=== PATIENT | female | born 1975 | race African-American/Black ===

== ENCOUNTER 2017-08-17 12:48 | Emergency (ER) | payer OTHER ==
[~2017-08-17] VITALS: Ht 193 cm; Wt 150.0 kg
[~2017-08-17 12:48] MED LIST: AMLO10 PO; CLON0.1T PO; METO25TA3 PO; TRAM50TA PO
[2017-08-17 12:50] VITALS: BP 243/138; PULSE 85; RESP 16; TEMP 97.6; O2SAT 98
[2017-08-17 13:21] VITALS: O2SAT 99
[2017-08-17] MEDS: NITROGLYCERIN 0.4 MG SL 25 TABS/BTL SL SCH ×3 (13:35→14:03)
[2017-08-17 13:39] LABS: AUTOMATED NEUTROPHIL # 8.7 TH/MM3 (1.8-7.7); BASOPHIL % 0.2 % (0.0-2.0); EOSINOPHIL # 0.1 TH/MM3 (0-0.4); EOSINOPHIL % 0.9 % (0.0-4.0); HEMATOCRIT 40.4 % (35.0-46.0); HEMOGLOBIN 13.5 GM/DL (11.6-15.3); LYMPH % 18.8 % (9.0-44.0); LYMPHOCYTE # 2.3 TH/MM3 (1.0-4.8); MEAN CELL VOLUME 85.7 FL (80.0-100.0); MEAN CORPUSCULAR HEMOGLOBIN 28.6 PG (27.0-34.0); MEAN CORPUSCULAR HGB CONC 33.3 % (32.0-36.0); MEAN PLATELET VOLUME 8.4 FL (7.0-11.0); MONO % 7.8 % (0.0-8.0); MONOCYTE # 0.9 TH/MM3 (0-0.9); NEUT % 72.3 % (16.0-70.0); PLATELET COUNT 236 TH/MM3 (150-450); RED BLOOD COUNT 4.71 MIL/MM3 (4.00-5.30)
--- NOTE | 2017-08-17 13:51 | RADRPT ---
EXAM DATE/TIME: 08/17/2017 13:34 [facility] COMPARISON: CHEST SINGLE AP, June 25, 2016, 12:55. INDICATIONS : Chest pain and vomiting. MEDICAL HISTORY : Hypertension. SURGICAL HISTORY : None. ENCOUNTER: Initial ACUITY: 1 day PAIN SCORE: 10/10 LOCATION: Bilateral chest FINDINGS: A single view of the chest demonstrates the lungs to be symmetrically aerated without evidence of mas s, infiltrate or effusion. The cardiomediastinal contours are unremarkable. Osseous structures are intact. CONCLUSION: 1. No acute abnormality or significant interval change. Amish Olsen MD on August 17, 2017 at 13:49 Board Certified Radiologist. This report was verified electronically.
[2017-08-17 13:54] VITALS: BP 179/104; PULSE 61; RESP 16; O2SAT 99
[2017-08-17 14:03] VITALS: BP 167/98; PULSE 56; RESP 16; O2SAT 99
[2017-08-17 14:06] LABS: BLOOD UREA NITROGEN 7 MG/DL (7-18); CALCIUM 9.1 MG/DL (8.5-10.1); CHLORIDE 103 MEQ/L (98-107); CREATININE 0.83 MG/DL (0.50-1.00); GLOMERULAR FILTRATION RATE 91 ML/MIN (>89); GLUCOSE,RANDOM 98 MG/DL (74-106); SODIUM (NA) 139 MEQ/L (136-145)
[2017-08-17 14:08] VITALS: RESP 18
--- NOTE | 2017-08-17 14:10 | PD ---
HPI Chief Complaint: Chest Pain Time Seen by Provider: 13:24 Travel History International Travel<30 days: No Contact w/Intl Traveler<30days: No Traveled to known affect area: No History of Present Illness HPI 41-year-old female complains of retrosternal chest pain. It started last night at rest. No exertional or pleuritic component. Severity moderate. She reports a history of high blood pressure and smoking. She reports compliance with antihypertensives which for her is clonidine. No fever or cough. No headache nausea or vomiting. She notes high blood pressure. PFSH Past Medical History Blood Disorders: No Cancer: No Cardiovascular Problems: Yes (proximal atrial fibrillation here in November) Chemotherapy: No Diminished Hearing: No Endocrine: No Gastrointestinal Disorders: No Genitourinary: No Heparin Induced Thrombocytopen: No Hypertension: Yes Musculoskeletal: No Neurologic: No Psychiatric: No Reproductive: No Respiratory: No Immunizations Current: No Pancreatitis: Yes Radiation Therapy: No Sickle Cell Disease: No Tetanus Vaccination: Unknown Influenza Vaccination: No ?: Not LMP: 07/25/17 : 1 Para: 1 Past Surgical History AICD: No Arteriovenous Shunt: No Section: Yes (X1) Gynecologic Surgery: Yes ( X1) Insulin Pump: No Joint Replacement: No Pacemaker: No Other Surgery: Yes ( 2000) Social History Alcohol Use: Yes (2 -3 X WEEKLY, PT STATES SHE DRINKS OCC NOW) Tobacco Use: Yes (6 cigs ) Substance Use: Yes (marijuana ) Allergies-Medications (Allergen,Severity, Reaction): Coded Allergies: No Known Allergies (Verified , 06/25/16) Reported Meds & Prescriptions Reported Meds & Active Scripts Active Tramadol (Tramadol HCl) 50 Mg Tab 50 Mg PO Q4H PRN Metoprolol Tartrate 25 Mg Tab 25 Mg PO Q12HR Norvasc (Amlodipine Besylate) 10 Mg Tab 10 Mg PO DAILY Reported Clonidine (Clonidine HCl) 0.1 Mg Tab 0.1 Mg PO Q8HR Review of Systems Except as stated in HPI: all other systems reviewed are Neg Physical Exam Narrative GENERAL: 41-year-old female pleasant well-nourished well-developed Vital Signs Date Time Temp Pulse Resp B/P (MAP) Pulse Ox O2 Delivery O2 Flow Rate FiO2 08/17/17 14:03 56 16 167/98 (121) 99 Room Air 08/17/17 13:54 61 16 179/104 (129) 99 Room Air 08/17/17 13:21 99 Room Air 08/17/17 13:21 99 Room Air 08/17/17 13:18 60 18 99 Room Air 08/17/17 12:50 97.6 85 16 243/138 (173) 98 SKIN: Warm and dry. HEAD: Atraumatic. Normocephalic. EYES: Pupils equal and round. No scleral icterus. No injection or drainage. ENT: No nasal bleeding or discharge. Mucous membranes pink and moist. NECK: Trachea midline. No JVD. CARDIOVASCULAR: Regular rate and rhythm. RESPIRATORY: No accessory muscle use. Clear to auscultation. Breath sounds equal bilaterally. GASTROINTESTINAL: Abdomen soft, non-tender, nondistended. Hepatic and splenic margins not palpable. MUSCULOSKELETAL: Extremities without clubbing, cyanosis, or edema. No obvious deformities. NEUROLOGICAL: Awake and alert. No obvious cranial nerve deficits. Motor grossly within normal limits. Five out of 5 muscle strength in the arms and legs. Normal speech. PSYCHIATRIC: Appropriate mood and affect; insight and judgment normal. Data Data Last Documented VS Vital Signs Date Time Temp Pulse Resp B/P (MAP) Pulse Ox O2 Delivery O2 Flow Rate FiO2 08/17/17 14:03 56 16 167/98 (121) 99 Room Air 08/17/17 12:50 97.6 Orders Orders Electrocardiogram (08/17/17 13:14) Complete Blood Count With Diff (08/17/17 13:14) Basic Metabolic Panel (Bmp) (08/17/17 13:14) Ckmb (Isoenzyme) Profile (08/17/17 13:14) Troponin I (08/17/17 13:14) Chest, Single Ap (08/17/17 13:14) Iv Access Insert/Monitor (08/17/17 13:14) Ecg Monitoring (08/17/17 13:14) Oxygen Administration (08/17/17 13:14) Oximetry (08/17/17 13:14) Lipase (08/17/17 13:28) Hepatic Functional Panel (08/17/17 13:28) Nitroglycerin Sl (Nitrostat Sl) (08/17/17 13:30) Ed Discharge Order (08/17/17 14:33) Labs Laboratory Tests Test 08/17/17 13:22 White Blood Count 12.0 TH/MM3 Red Blood Count 4.71 MIL/MM3 Hemoglobin 13.5 GM/DL Hematocrit 40.4 % Mean Corpuscular Volume 85.7 FL Mean Corpuscular Hemoglobin 28.6 PG Mean Corpuscular Hemoglobin Concent 33.3 % Red Cell Distribution Width 15.0 % Platelet Count 236 TH/MM3 Mean Platelet Volume 8.4 FL Neutrophils (%) (Auto) 72.3 % Lymphocytes (%) (Auto) 18.8 % Monocytes (%) (Auto) 7.8 % Eosinophils (%) (Auto) 0.9 % Basophils (%) (Auto) 0.2 % Neutrophils # (Auto) 8.7 TH/MM3 Lymphocytes # (Auto) 2.3 TH/MM3 Monocytes # (Auto) 0.9 TH/MM3 Eosinophils # (Auto) 0.1 TH/MM3 Basophils # (Auto) 0.0 TH/MM3 CBC Comment DIFF FINAL Differential Comment Blood Urea Nitrogen 7 MG/DL Creatinine 0.83 MG/DL Random Glucose 98 MG/DL Calcium Level 9.1 MG/DL Sodium Level 139 MEQ/L Potassium Level 3.8 MEQ/L Chloride Level 103 MEQ/L Carbon Dioxide Level 28.0 MEQ/L Anion Gap 8 MEQ/L Estimat Glomerular Filtration Rate 91 ML/MIN Total Creatine Kinase 94 U/L Troponin I LESS THAN 0.02 NG/ML MDM Medical Decision Making Medical Screen Exam Complete: Yes Emergency Medical Condition: Yes Medical Record Reviewed: Yes Differential Diagnosis NSTEMI, unstable angina, coronary vasospasm, PE, PTX, aortic dissection, pericarditis, myocarditis, endocarditis, PNA, esophageal disease, aneurysm, musculoskeletal etiologies, anxiety, cocaine/sympathomimetic abuse Narrative Course EKG shows a sinus rhythm with a rate of 59 normal axis intervals Last Impressions Chest X-Ray 08/17/17 1314 Signed Impressions: Service Date/Time: Thursday, August 17, 2017 13:34 - CONCLUSION: 1. No acute abnormality or significant interval change. Amsih Olsen MD CBC & BMP Diagram 08/17/17 13:22 Calcium Level 9.1 Troponin undetectable We will start hydrochlorothiazide Follow up with primary care The patient is resting comfortably and feels better, is alert and in no distress. The patients results and examination findings were discussed. The repeat examination is unremarkable and benign. The history, exam, diagnostic testing, and current condition do not suggest any significant pathology to warrant further testing, continued ED treatment, admission, or surgical evaluation at this point. The vital signs have been stable. The patient does not have uncontrollable pain, intractable vomiting, or other significant symptoms. The patient's condition is stable and appropriate for discharge. The patient will pursue further outpatient evaluation with a primary care physician or other designated or consulting physician as indicated in the discharge instructions. The patient expressed understanding and was agreeable with this plan. Diagnosis Primary Impression: Chest pain Qualified Codes: R07.89 - Other chest pain Additional Impression: Hypertensive urgency Referrals: Primary Care Physician 2 days Med/Other Pt SpecificInfo: Prescription(s) given Scripts Hydrochlorothiazide (Hydrochlorothiazide) 25 Mg Tab 25 MG PO DAILY, #30 TAB 0 Refills Prov: Ralph Juarez MD 08/17/17 Disposition: 01 DISCHARGE HOME Condition: Stable Ralph Juarez MD Aug 17, 2017 14:10
[2017-08-17 14:11] LABS: TROPONIN I LESS THAN 0.02 NG/ML (0.02-0.05)
[2017-08-17] MEDS ORDERED: HYDR25TA5 PO (14:35)
[2017-08-17 23:23] LABS: ALBUMIN 3.6 GM/DL (3.4-5.0); DIRECT BILIRUBIN ADULT 0.1 MG/DL (0.0-0.2)
[2017-08-17 23:25] LABS: INDIRECT BILIRUBIN 0.3 MG/DL (0.0-0.8); TOTAL BILIRUBIN ADULT 0.4 MG/DL (0.2-1.0); TOTAL PROTEIN 7.8 GM/DL (6.4-8.2)
[2017-08-18] MEDS ORDERED: ZOFR4TAB3 SL (14:36)
[2017-08-18] MEDS ORDERED: HYDR-3516 PO (14:36)
--- NOTE | 2017-08-18 15:39 | EKG ---
Date Performed: 08/17/2017 Time Performed: 13:15:19 PTAGE: 41 years EKG: SINUS BRADYCARDIA Since previous tracing, no significant change noted BORDERLINE ECG PREVIOUS TRACING : 06/25/2016 17.34.54 DOCTOR: Alvin Hanna Interpretating Date/Time 08/18/2017 15:38:11
== END 2017-08-17 14:53 | disposition home or self-care (01) ==
LOC: NEPC 12:48
DX: R07.9 Chest pain, unspecified (principal); I16.0 Hypertensive urgency; F12.10 Cannabis abuse, uncomplicated; R00.1 Bradycardia, unspecified; F17.210 Nicotine dependence, cigarettes, uncomplicated; Z87.19 Personal history of other diseases of the digestive system; Z79.899 Other long term (current) drug therapy
CPT/HCPCS: 71045; 80048; 80076; 82550; 83690; 84484; 85025; 93005

== ENCOUNTER 2017-08-18 12:03 | Emergency (ER) | payer OTHER ==
[~2017-08-18] VITALS: Ht 195.6 cm; Wt 145.0 kg
[~2017-08-18 12:03] MED LIST changes: +HYDR25TA5 PO
[2017-08-18 12:06] VITALS: BP 186/121; PULSE 115; RESP 15; TEMP 98.1; O2SAT 97
[2017-08-18] MEDS ORDERED: SODIUM CHLORIDE 0.9% FLUSH 10 ML FLUSH IVF PRN (12:45)
[2017-08-18] MEDS ORDERED: SODIUM CHLOR 0.9% 1000 ML INJ 1,000 ML IV ONE ×2 (13:00→13:45)
[2017-08-18] MEDS ORDERED: ONDANSETRON HCL 4 MG/2 ML VIAL IV PUSH ONE (13:15)
[2017-08-18] MEDS ORDERED: MORPHINE SULFATE 2 MG/ML INJ IV PUSH ONE (13:15)
[2017-08-18 13:17] LABS: AUTOMATED NEUTROPHIL # 8.3 TH/MM3 (1.8-7.7); BASOPHIL # 0.1 TH/MM3 (0-0.2); BASOPHIL % 0.5 % (0.0-2.0); EOSINOPHIL # 0.1 TH/MM3 (0-0.4); HEMATOCRIT 41.4 % (35.0-46.0); HEMOGLOBIN 14.5 GM/DL (11.6-15.3); LYMPH % 21.7 % (9.0-44.0); LYMPHOCYTE # 2.6 TH/MM3 (1.0-4.8); MEAN CELL VOLUME 85.4 FL (80.0-100.0); MEAN CORPUSCULAR HEMOGLOBIN 29.9 PG (27.0-34.0); MEAN CORPUSCULAR HGB CONC 35.1 % (32.0-36.0); MEAN PLATELET VOLUME 8.6 FL (7.0-11.0); MONO % 6.4 % (0.0-8.0); MONOCYTE # 0.8 TH/MM3 (0-0.9); NEUT % 70.4 % (16.0-70.0); PLATELET COUNT 240 TH/MM3 (150-450); RED BLOOD COUNT 4.85 MIL/MM3 (4.00-5.30); RED CELL DISTRIBUTION WIDTH 14.8 % (11.6-17.2); WHITE BLOOD COUNT 11.8 TH/MM3 (4.0-11.0)
--- NOTE | 2017-08-18 13:24 | RADRPT ---
EXAM DATE/TIME: 08/18/2017 12:58 [facility] COMPARISON: CHEST SINGLE AP, August 17, 2017, 13:34. INDICATIONS : Chest Pain MEDICAL HISTORY : Hypertension. Pancreatitis. SURGICAL HISTORY : None. ENCOUNTER: Initial ACUITY: 1 day PAIN SCORE: 8/10 LOCATION: chest FINDINGS: A single view of the chest demonstrates the lungs to be symmetrically aerated without evidence of mas s, infiltrate or effusion. The cardiomediastinal contours are unremarkable. Osseous structures are intact. CONCLUSION: The lungs are clear. Roldan Marte MD on August 18, 2017 at 13:22 Board Certified Radiologist. This report was verified electronically.
[2017-08-18 13:31] LABS: ALBUMIN 3.5 GM/DL (3.4-5.0); ALT (GPT) 21 U/L (10-53); AST (GOT) 16 U/L (15-37); BICARBONATE 27.3 MEQ/L (21.0-32.0); BLOOD UREA NITROGEN 5 MG/DL (7-18); CHLORIDE 104 MEQ/L (98-107); CREATININE 0.72 MG/DL (0.50-1.00); GLOMERULAR FILTRATION RATE 107 ML/MIN (>89); GLUCOSE,RANDOM 93 MG/DL (74-106); MAGNESIUM 1.9 MG/DL (1.5-2.5); SODIUM (NA) 140 MEQ/L (136-145)
[2017-08-18 13:33] LABS: ALKALINE PHOSPHATASE 129 U/L (45-117); TOTAL BILIRUBIN ADULT 0.5 MG/DL (0.2-1.0); TOTAL PROTEIN 7.9 GM/DL (6.4-8.2)
[2017-08-18 13:35] LABS: TROPONIN I LESS THAN 0.02 NG/ML (0.02-0.05)
--- NOTE | 2017-08-18 13:49 | RADRPT ---
EXAM DATE/TIME: 08/18/2017 13:11 [facility] COMPARISON: No previous studies available for comparison. INDICATIONS : Right upper quadrant pain. MEDICAL HISTORY : Hypertension. Pancreatitis. Proximal atrial fibrillation. Susbstance use. SURGICAL HISTORY : section. Right lower leg with skin grafts. ENCOUNTER: Initial ACUITY: 3 days PAIN SCORE: 8/10 LOCATION: Right upper quadrant MEASUREMENTS: LIVER: 17.5 cm length COMMON DUCT: 3 mm RIGHT KIDNEY: 11.6 x 5.7 x 4.5 cm FINDINGS: LIVER: Increased echotexture without focal lesion or ductal dilatation. COMMON DUCT: No intraluminal mass or stone visualized. GALLBLADDER: Contains no stones, demonstrates no wall thickening or pericholecystic fluid. PANCREAS: The visualized portions are within normal limits. RIGHT KIDNEY: No evidence of hydronephrosis, stone, or mass. CONCLUSION: Normal examination except for a mildly fatty liver. Micah Walker MD on August 18, 2017 at 13:47 Board Certified Radiologist. This report was verified electronically.
--- NOTE | 2017-08-18 13:53 | PD ---
HPI Chief Complaint: Chest Pain Time Seen by Provider: 12:40 Travel History International Travel<30 days: No Contact w/Intl Traveler<30days: No Traveled to known affect area: No History of Present Illness HPI 41-year-old female that presents to the ED for evaluation of chest pain. Patient was seen here yesterday for this. Diagnosed with chest pain and hypertension. Given HCTZ. Pain continues 02/07. Medical records show elevated lipase and no note of this in previous providers note. per patient she has a history of alcohol abuse and pancreatitis in the past. pain not better. nauseous but no vomiting. No urinary or BM issues. Chest pain is more on the epigastric area. No urinary or BM issues. No allergies to meds. Still has gallbladder. No SOB. No other medical issues. PFSH Past Medical History Blood Disorders: No Cancer: No Cardiovascular Problems: Yes (proximal atrial fibrillation here in November) Chemotherapy: No Diminished Hearing: No Endocrine: No Gastrointestinal Disorders: No Genitourinary: No Heparin Induced Thrombocytopen: No Hypertension: Yes Musculoskeletal: No Neurologic: No Psychiatric: No Reproductive: No Respiratory: No Immunizations Current: No Pancreatitis: Yes Radiation Therapy: No Sickle Cell Disease: No ?: Not : 1 Para: 1 Past Surgical History AICD: No Arteriovenous Shunt: No Section: Yes (X1) Gynecologic Surgery: Yes ( ) Insulin Pump: No Joint Replacement: No Pacemaker: No Other Surgery: Yes ( 2000) Social History Alcohol Use: Yes (2 -3 X WEEKLY, PT STATES SHE DRINKS OCC NOW) Tobacco Use: Yes (6 cigs ) Substance Use: Yes (marijuana ) Allergies-Medications (Allergen,Severity, Reaction): Coded Allergies: No Known Allergies (Verified , 06/25/16) Reported Meds & Prescriptions Reported Meds & Active Scripts Active Hydrochlorothiazide 25 Mg Tab 25 Mg PO DAILY Tramadol (Tramadol HCl) 50 Mg Tab 50 Mg PO Q4H PRN Metoprolol Tartrate 25 Mg Tab 25 Mg PO Q12HR Norvasc (Amlodipine Besylate) 10 Mg Tab 10 Mg PO DAILY Reported Clonidine (Clonidine HCl) 0.1 Mg Tab 0.1 Mg PO Q8HR Review of Systems Except as stated in HPI: all other systems reviewed are Neg Physical Exam Narrative GENERAL: SKIN: Warm and dry. HEAD: Atraumatic. Normocephalic. EYES: Pupils equal and round. No scleral icterus. No injection or drainage. ENT: No nasal bleeding or discharge. Mucous membranes pink and moist. NECK: Trachea midline. No JVD. CARDIOVASCULAR: Regular rate and rhythm. RESPIRATORY: No accessory muscle use. Clear to auscultation. Breath sounds equal bilaterally. GASTROINTESTINAL: Abdomen soft, tender on the epigastric area, nondistended. Hepatic and splenic margins not palpable. MUSCULOSKELETAL: Extremities without clubbing, cyanosis, or edema. No obvious deformities. NEUROLOGICAL: Awake and alert. No obvious cranial nerve deficits. Motor grossly within normal limits. Five out of 5 muscle strength in the arms and legs. Normal speech. PSYCHIATRIC: Appropriate mood and affect; insight and judgment normal. Data Data Last Documented VS Vital Signs Date Time Temp Pulse Resp B/P (MAP) Pulse Ox O2 Delivery O2 Flow Rate FiO2 08/18/17 14:01 50 18 161/100 (120) 97 Nasal Cannula 2.00 08/18/17 12:06 98.1 Orders Orders Electrocardiogram (08/18/17 ) Ckmb (Isoenzyme) Profile (08/18/17 12:42) Complete Blood Count With Diff (08/18/17 12:42) Magnesium (Mg) (08/18/17 12:42) Troponin I (08/18/17 12:42) Lipase (08/18/17 12:42) Chest, Single Ap (08/18/17 12:42) Ecg Monitoring (08/18/17 12:42) Bilateral Bp Monitoring (08/18/17 12:42) Iv Access Insert/Monitor (08/18/17 12:42) Sodium Chloride 0.9% Flush (Ns Flush) (08/18/17 12:45) Us Abdomen Gallbladder (08/18/17 ) Sodium Chlor 0.9% 1000 Ml Inj (Ns 1000 M (08/18/17 13:00) Comprehensive Metabolic Panel (08/18/17 12:48) Morphine Inj (Morphine Inj) (08/18/17 13:15) Ondansetron Inj (Zofran Inj) (08/18/17 13:15) Sodium Chlor 0.9% 1000 Ml Inj (Ns 1000 M (08/18/17 13:45) Ed Discharge Order (08/18/17 14:32) Labs Laboratory Tests Test 08/18/17 12:53 White Blood Count 11.8 TH/MM3 Red Blood Count 4.85 MIL/MM3 Hemoglobin 14.5 GM/DL Hematocrit 41.4 % Mean Corpuscular Volume 85.4 FL Mean Corpuscular Hemoglobin 29.9 PG Mean Corpuscular Hemoglobin Concent 35.1 % Red Cell Distribution Width 14.8 % Platelet Count 240 TH/MM3 Mean Platelet Volume 8.6 FL Neutrophils (%) (Auto) 70.4 % Lymphocytes (%) (Auto) 21.7 % Monocytes (%) (Auto) 6.4 % Eosinophils (%) (Auto) 1.0 % Basophils (%) (Auto) 0.5 % Neutrophils # (Auto) 8.3 TH/MM3 Lymphocytes # (Auto) 2.6 TH/MM3 Monocytes # (Auto) 0.8 TH/MM3 Eosinophils # (Auto) 0.1 TH/MM3 Basophils # (Auto) 0.1 TH/MM3 CBC Comment DIFF FINAL Differential Comment Blood Urea Nitrogen 5 MG/DL Creatinine 0.72 MG/DL Random Glucose 93 MG/DL Total Protein 7.9 GM/DL Albumin 3.5 GM/DL Calcium Level 9.0 MG/DL Alkaline Phosphatase 129 U/L Aspartate Amino Transf (AST/SGOT) 16 U/L Alanine Aminotransferase (ALT/SGPT) 21 U/L Total Bilirubin 0.5 MG/DL Sodium Level 140 MEQ/L Potassium Level 3.6 MEQ/L Chloride Level 104 MEQ/L Carbon Dioxide Level 27.3 MEQ/L Anion Gap 9 MEQ/L Estimat Glomerular Filtration Rate 107 ML/MIN Magnesium Level 1.9 MG/DL Total Creatine Kinase 80 U/L Troponin I LESS THAN 0.02 NG/ML Lipase 1077 U/L MDM Medical Decision Making Medical Screen Exam Complete: Yes Emergency Medical Condition: Yes Medical Record Reviewed: Yes Interpretation(s) CBC & BMP Diagram 08/18/17 12:53 Total Protein 7.9, Albumin 3.5, Calcium Level 9.0, Alkaline Phosphatase 129 H, Aspartate Amino Transf (AST/SGOT) 16, Alanine Aminotransferase (ALT/SGPT) 21, Total Bilirubin 0.5 Last Impressions Chest X-Ray 08/18/17 1242 Signed Impressions: Service Date/Time: Friday, August 18, 2017 12:58 - CONCLUSION: The lungs are clear. Roldan Marte MD Gall Bladder Ultrasound 08/18/17 0000 Signed Impressions: Service Date/Time: Friday, August 18, 2017 13:11 - CONCLUSION: Normal examination except for a mildly fatty liver. Micah Walker MD EKG shows sinus rhythm with no sign of acute ischemia or arrythmia. Read by me and attending. Troponin and CK-MB negative. Lipase in the 1000 Differential Diagnosis Pancreatitis versus atypical chest pain versus gallbladder disease Narrative Course 41-year-old female that presents to the ED for evaluation of epigastric abdominal pain. Patient was properly examined and was found to have signs and symptoms consistent appears to be acute pancreatitis. I reviewed the patient's medical records and she had an highly elevated lipase yesterday. Unclear if this was mentioned to the patient is is no note about this. Patient is very tender on the right upper quadrant we'll do ultrasound to rule out any sign of gallbladder disease. Ultrasound was negative. Labs were essentially reassuring. Lipase is improved. She was given IV fluids here and pain medication with good results. At this time I think that the patient can go home with pain medication and antiemetics and liquid diet. She agrees with this plan. Follow-up with PCP. See ED worsening symptoms. Diagnosis Primary Impression: Acute pancreatitis Qualified Codes: K85.20 - Alcohol induced acute pancreatitis without necrosis or infection Patient Instructions: General Instructions, Narcotic given in the ED Additional Instructions: Take medications as prescribed. Follow-up with PCP. See ED for any worsening symptoms. Do not drink or drive while taking pain medication. Apply ice or heat as needed for pain Med/Other Pt SpecificInfo: Prescription(s) given Disposition: 01 DISCHARGE HOME Condition: Stable Bijan Blankenship Aug 18, 2017 13:52
[2017-08-18 14:01] VITALS: BP 161/100; PULSE 50; RESP 18; O2SAT 97
[2017-08-18] MEDS ORDERED: HYDR-3516 PO (14:36)
[2017-08-18] MEDS ORDERED: ZOFR4TAB3 SL (14:36)
--- NOTE | 2017-08-19 23:12 | EKG ---
Date Performed: 08/18/2017 Time Performed: 12:20:33 PTAGE: 41 years EKG: Sinus rhythm WITH SINUS ARRHYTHMIA POSSIBLE LEFT ATRIAL ENLARGEMENT BORDERLINE ECG PREVIOUS TRACING : 08/17/2017 13.15 DOCTOR: Tia Floyd Interpretating Date/Time 08/19/2017 23:01:28
== END 2017-08-18 14:47 | disposition home or self-care (01) ==
LOC: NEPE 12:03
DX: K85.20 Alcohol induced acute pancreatitis without necrosis or infection (principal); I10 Essential (primary) hypertension; F17.210 Nicotine dependence, cigarettes, uncomplicated; F10.10 Alcohol abuse, uncomplicated
CPT/HCPCS: 71045; 76705; 80053; 82550; 83690; 83735; 84484; 85025; 93005; 96361; 96374; 96375; 99285; J2270; J2405; J7030

== ENCOUNTER 2018-01-12 05:01 | Inpatient (IN) ==
[2018-01-12] MEDS ORDERED: Famotidine PF Inj 20 MG/2 ML Vial IV.PUSH ONE (05:59)
[2018-01-12] MEDS ORDERED: Morphine Inj 4 MG/ML Vial IV.PUSH ONE (06:00)
[2018-01-12] MEDS ORDERED: Sod Chloride 0.9% Inj 1,000 ML IV.SIG ONE (06:01)
[2018-01-12] MEDS ORDERED: Labetalol HCl Inj 100 MG/20 ML Vial IV.PUSH ONE ×2 (06:09→06:10)
--- NOTE | 2018-01-12 06:31 | ED ---
HPI General Chief Complaint: Chest Pain Stated Complaint: Chest pain Time Seen by Provider: 01/12/18 05:57 Source: patient and EMS Limitations: no limitations History of Present Illness HPI narrative: Patient awoke this evening vomiting abdominal pain substernal pain burning radiating up to the throat she has a history of pancreatitis she said is from alcohol she has been drinking excessively she says denies gallstone history she has had nausea vomiting burning for over 12 hours comes to the ER screaming in pain writhing in pain nothing is alleviating it nothing seems to make it worse but she thinks it could be related to the alcohol she has been drinking somewhat heavy she says in the last day Complete Quality Measures for STEMI Alert Patients Related Data Home Medications Medication Instructions Recorded Confirmed clonidine HCl 0.1 mg PO TID 01/12/18 01/12/18 Allergies Allergy/AdvReac Type Severity Reaction Status Date / Time No Known Allergies Allergy Uncoded 06/25/16 12:56 Review of Systems Except as stated in HPI: all other systems reviewed are negative [facility] Medical History Medical History HTN (hypertension) (Acute) Surgical History Surgical History History of orthopedic surgery (Acute) Social History Social History Substance History: Active Abuse Second Hand Smoke Exposure: No Smoking Status: Current every day smoker Tobacco Type: Cigarettes How Often Do You Have a Drink Containing Alcohol: 2 to 3 times a week Recent Travel in [facility] within the Last 8 Weeks: No Recent Out of Country Travel within the Last 8 Weeks: No Substance Abuse Detail Marijuana: Substance Use Status: Active Route Used Substance Abuse: Inhalation Reason for Use: Get High Immunization History Tetanus Immunization: Unsure Hx Influenza Vaccine This Season: No Exam Narrative Exam Narrative: GENERAL: Patient appears to be in distress she is holding her abdomen writhing moaning screaming in pain [-] SKIN: Focused skin assessment warm/dry. HEAD: Atraumatic. Normocephalic. EYES: Pupils equal and round. No scleral icterus. No injection or drainage. ENT: No nasal bleeding or discharge. Mucous membranes pink and moist. NECK: Trachea midline. No JVD. CARDIOVASCULAR: Regular rate and rhythm. No murmur appreciated. RESPIRATORY: No accessory muscle use. Clear to auscultation. Breath sounds equal bilaterally. GASTROINTESTINAL: Patient is obese has epigastric pain for umbilical pain soft nondistended but obese MUSCULOSKELETAL: No obvious deformities. No clubbing. No cyanosis. No edema. NEUROLOGICAL: Awake and alert. No obvious cranial nerve deficits. Motor grossly within normal limits. Normal speech. PSYCHIATRIC: Appropriate mood and affect; insight and judgment normal. Course Initial Documented Vital Signs Temperature 97.8 F 01/12/18 05:03 Pulse Rate 82 01/12/18 05:03 Respiratory Rate 28 H 01/12/18 05:03 Blood Pressure 271/153 H 01/12/18 05:03 Pulse Oximetry 100 01/12/18 05:03 Last Documented Vital Signs Temperature 97.8 F 01/12/18 05:03 Pulse Rate 77 01/12/18 08:46 Respiratory Rate 18 01/12/18 08:46 Blood Pressure 233/125 H 01/12/18 08:46 Pulse Oximetry 97 01/12/18 08:46 Critical Care Time Critical Care Time: Yes Total Critical Care Time: 31 Attestation: Total critical care time 31 minutes. This includes examining and stabilizing the patient, gathering a history from a source other than the patient (i.e., chart review, sign out from overnight provider), reviewing laboratory tests, ordering and interpreting radiology tests, discussing the patient's care with other providers (critical care), and titration of nicardipine drip Sign Out Sign Out Data: Patient Sign Out occurred on 01/12/18 at 07:28. Patient's care was discussed, and care was transferred from Kal Antony to Geri Fisher DO. Sign Out Comment: pt has CT pending and abdominal pain Last updated by Kal Antony at 01/12/18 07:27 Post-Handoff Eval: Patient brought to CT scan for abdomen/ pelvis study, noted to be acutely altered stating that it is 2006 and she is in [place]. CT head performed showed no ICH; patient returned to baseline mental status when she returned to the ED. BP continues to be profoundly elevated (230s/120s) despite multiple doses of labetalol and clonidine, so I started her on a nicardipine drip. The remainder of her workup shows no obvious abnormalities and no source of her abdominal pain. Case discussed with Dr. Mansfield of [facility]; patient requires inpatient admission for vasoactive medications, cardiac monitoring, and re-evaluation at frequent intervals. I explained the results of all labs and imaging as well as plan of care with the patient; she understands and agrees. Medical Decision Making MDM Narrative Medical decision making narrative: Patient is given Pepcid Reglan normal saline pain meds hydration and will have a CAT scan Differential Diagnosis Differential Diagnosis: Differential diagnosis includes pancreatitis gallbladder disease gastritis viral gastroenteritis possible cardiac possible pulmonary other Lab Data Result diagrams: 01/12/18 06:00 01/12/18 06:00 Lab Results 01/12/18 01/12/18 Range/Units 06:00 06:00 WBC 15.7 H (4.0-11.0) th/mm3 RBC 5.59 H (4.00-5.30) mil/mm3 Hgb 15.6 H (11.6-15.3) gm/dL Hct 47.0 H (35.0-46.0) % MCV 84.0 (80.0-100.0) fL MCH 28.0 (27.0-34.0) pg MCHC 33.3 (32.0-36.0) % RDW 15.4 (11.6-17.2) % Plt Count 316 (150-450) th/mm3 MPV 9.4 (7.0-11.0) fL Neut % (Auto) 82.6 H (16.0-70.0) % Lymph % (Auto) 11.1 (9.0-44.0) % [place] % (Auto) 4.9 (0.0-8.0) % Eos % (Auto) 0.1 (0.0-4.0) % Baso % (Auto) 1.3 (0.0-2.0) % Neut # (Auto) 13.0 H (1.8-7.7) th/mm3 Lymph # (Auto) 1.7 (1.0-4.8) th/mm3 [place] # (Auto) 0.8 (0.0-0.9) th/mm3 Eos # (Auto) 0.0 (0.0-0.4) th/mm3 Baso # (Auto) 0.2 (0.0-0.2) th/mm3 WBC Differential . Differential Comment Auto diff final Sodium 140 (136-145) meq/L Potassium 3.2 L (3.5-5.1) meq/L Chloride 103 (98-107) meq/L Carbon Dioxide 23.0 (21.0-32.0) meq/L Anion Gap 14 (5-15) meq/L BUN 11 (7-18) mg/dL Creatinine 1.04 H (0.50-1.00) mg/dL Estimated GFR 70 L (>89) mL/min Random Glucose 125 H (74-106) mg/dL Calcium 10.1 (8.5-10.1) mg/dL Total Bilirubin 0.6 (0.2-1.0) mg/dL AST 26 (15-37) U/L ALT 35 (10-53) U/L Alkaline Phosphatase 179 H (45-117) U/L Total Protein 9.2 H (6.4-8.2) g/dL Albumin 4.0 (3.4-5.0) g/dL Lipase 65 L (73-393) U/L Imaging Data Radiologist's impression: Abdomen/Pelvis CT 01/12/18 06:47 CONCLUSION: 1. No abnormalities identified to account for the patient's epigastric pain. Pancreas appears normal. 2. Severe asymmetric degenerative changes of the right hip. Head CT 01/12/18 07:58 CONCLUSION: 1. Negative CT Head non contrast. Discharge Plan Discharge Disposition Patient Disposition: 30 Still Patient Discharge Condition Condition: Serious Discharge Details Diagnosis: Encephalopathy acute, Hypertensive emergency Physicians Team ED Provider: Geri Fisher Primary Care Provider: Primary Care CassiAlexia Rxs /Orders / Referrals /Forms Prescriptions: No Action clonidine HCl 0.1 mg Tablet 0.1 mg PO TID RF: 0 Discharge Instructions Patient Printed Instructions: Chest Pain (ED) Discharge Interventions Interventions: Vital Signs Last Done: 01/12/18 08:46 Status ED Status: With Doctor
[2018-01-12 06:34] LABS: Baso # (Auto) 0.2 th/mm3 (0.0-0.2); Baso % (Auto) 1.3 % (0.0-2.0); Eos % (Auto) 0.1 % (0.0-4.0); Hemoglobin 15.6 gm/dL (11.6-15.3); Lymph # (Auto) 1.7 th/mm3 (1.0-4.8); Lymph % (Auto) 11.1 % (9.0-44.0); Mean Corpuscular HGB Conc 33.3 % (32.0-36.0); Mean Platelet Volume 9.4 fL (7.0-11.0); Mono # (Auto) 0.8 th/mm3 (0.0-0.9); Mono % (Auto) 4.9 % (0.0-8.0); Neut % (Auto) 82.6 % (16.0-70.0); Platelet Count 316 th/mm3 (150-450); Red Blood Count 5.59 mil/mm3 (4.00-5.30); Red Cell Distribution Width 15.4 % (11.6-17.2); White Blood Count 15.7 th/mm3 (4.0-11.0)
[2018-01-12 06:41] LABS: Alanine Aminotransferase 35 U/L (10-53); Anion Gap 14 meq/L (5-15); Aspartate Aminotransferase 26 U/L (15-37); Blood Urea Nitrogen 11 mg/dL (7-18); Calcium 10.1 mg/dL (8.5-10.1); Chloride 103 meq/L (98-107); Glomerular Filtration Rate 70 mL/min (>89); Glucose,Random 125 mg/dL (74-106); Lipase 65 U/L (73-393); Potassium 3.2 meq/L (3.5-5.1); Sodium 140 meq/L (136-145)
[2018-01-12 06:44] LABS: Alkaline Phosphatase 179 U/L (45-117); Total Protein 9.2 g/dL (6.4-8.2)
--- NOTE | 2018-01-12 08:29 | CT ---
EXAM DATE: 01/12/2018 8:23 AM EDT AGE/SEX: 42 years / Female INDICATIONS: Epigastric abdomen pain today. CLINICAL DATA: This is the patient's initial encounter. Patient reports that signs and symptoms have been present for 1 day and indicates a pain score of 10/10. MEDICAL/SURGICAL HISTORY: Hypertension. Pancreatitis. None. ORAL CONTRAST: No oral contrast ingested. RADIATION DOSE: 16.54 CTDI (mGy) ; Patient body habitus COMPARISON: No prior exams available for comparison. TECHNIQUE: Multiple contiguous axial images were obtained through the abdomen and pelvis following b olus infusion of 95 ml Omnipaque 350 (iohexol) nonionic water-soluble contrast as a single exam dos e. No oral contrast ingested. Using automated exposure control and adjustment of the mA and/or kV ac cording to patient size, radiation dose was kept as low as reasonably achievable to obtain optimal di agnostic quality images. DICOM format image data is available electronically for review and comparis on. FINDINGS: Lower Lungs: The visualized lower lungs are clear. Liver: The liver has a homogeneous density without space-occupying lesion. There is no dilation of th e biliary tree. Gallbladder is normal. Spleen: Homogeneous density without enlargement. Pancreas: Unremarkable without mass or calcification. Kidneys: Normal in size and shape. No evidence of mass or hydronephrosis. Adrenal Glands: Unremarkable. Aorta: The aorta and proximal iliac vessels are grossly unremarkable without aneurysmal dilation. Bowel/Mesentery: Diverticulosis of the sigmoid colon. The remainder of the large bowel and small bow el are unremarkable without evidence of wall thickening or inflammatory change. Abdominal Wall: Intact. Retroperitoneum: No evidence of adenopathy in the retrocrural, para-aortic, or deep pelvic regions. Bladder: Contours are smooth. Reproductive Organs: No abnormal masses or calcifications seen. Inguinal: The inguinal region is unremarkable without evidence of adenopathy. Bony Structures: There is severe right hip degenerative change with axial joint line narrowing, ring osteophyte formation around the femoral head and large areas of subchondral cyst formation identifie d throughout the right acetabulum. Mild degenerative changes are present within the left hip. CONCLUSION: 1. No abnormalities identified to account for the patient's epigastric pain. Pancreas appears normal . 2. Severe asymmetric degenerative changes of the right hip. Electronically signed by: Zohra Carlin MD 01/12/2018 8:28 AM EDT
--- NOTE | 2018-01-12 08:35 | CT ---
EXAM DATE: 01/12/2018 8:29 AM EDT AGE/SEX: 42 years / Female INDICATIONS: Altered mental status. Became unresponsive following CT abdomen/pelvis with IV contrast . CLINICAL DATA: This is the patient's initial encounter. Patient reports that signs and symptoms have been present for 1 day and indicates a pain score of Nonresponsive. MEDICAL/SURGICAL HISTORY: Pancreatitis. Hypertension. None. RADIATION DOSE: 56.35 CTDI (mGy) COMPARISON: [facility], CT BRAIN W/O CONTRAST, 06/25/2016. [facility], CT BRAIN W/O CONTRAST, 02/18/2016. . TECHNIQUE: CT of the head without contrast. Using automated exposure control and adjustment of the mA and/or kV according to patient size, radiation dose was kept as low as reasonably achievable to ob tain optimal diagnostic quality images. DICOM format image data is available electronically for revi ew and comparison. FINDINGS: Cerebrum: The ventricles are normal for age. No evidence of midline shift, mass lesion, hemorrhage or acute infarction. No extraaxial fluid collections are seen. Posterior Fossa: The cerebellum and brainstem are intact. The 4th ventricle is midline. The cerebe llopontine angle is unremarkable. Extracranial: The visualized portion of the orbits is intact. Skull: The calvaria is intact. No evidence of skull fracture. CONCLUSION: 1. Negative CT Head non contrast. Electronically signed by: Zohra Carlin MD 01/12/2018 8:33 AM EDT
[2018-01-12] MEDS ORDERED: niCARdipine Inj 25 MG in Sodium Chlor 0.9% Inj 240 ML IV.CONT PRN (08:49)
[2018-01-12] MEDS ORDERED: Bisacodyl 10 MG Supp RECTAL PRN (09:23)
[2018-01-12] MEDS: Pantoprazole Inj 40 MG Vial IV.PUSH SCH (10:05)
[2018-01-12] MEDS: KCL 20 mEq/D5W/NaCl 0.45% Inj 1,000 ML IV.CONT SCH ×2 (10:06→20:36)
--- NOTE | 2018-01-12 10:34 | P.HPCC ---
History of Present Illness Primary Care Physician: No Primary Care Physician Chief Complaint: Chest pain History of Present Illness: 42-year-old female with a medical history significant for hypertension, pancreatitis who presented to the ER with complains of left-sided chest pain/ epigastric pain which started about 12 hours prior to presentation last evening. She was noted to have extremely high blood pressures under 240 systolic range in the ER. She underwent a CT abdomen pelvis which was unremarkable. While in CAT scan she developed altered mental status and disorientation which was transient. Head CT done following that episode was unremarkable as well with no evidence of bleed. She continued to have systolic blood pressure greater than 200. Only medication she takes at home is clonidine. 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 She does admit to drinking 1-2 alcoholic drinks(kallie) daily. ER physician ordered a nicardipine drip for blood pressure control. patient was accepted for admission by critical care medicine service. When I evaluated the patient in the ER she was laying in the ER stretcher and did not appear to be in any acute distress. In view of chest pain and uncontrolled hypertension presentation I ordered a CTA chest abdomen pelvis to evaluate for any aortic dissection. Her initial cardiac enzymes were negative. She denies any fevers chills productive cough hematemesis melena or rectal bleeding. Denies any palpitations. Denies any diarrhea. Inpatient Certification: I certify that the inpatient services were ordered in accordance with Medicare regulations governing the order. This includes certification that hospital inpatient services are reasonable and necessary and in the case of services not specified as inpatient-only under 42 CFR 419.22(n), that they are appropriately provided as inpatient services in accordance to with the 2-midnight benchmark under 43 CFR 412.3(e) Estimated Total Length of Stay (Days): 4 Plans for Post Hospital Care: Not yet determined Review of Systems All other systems reviewed negative except as stated in HPI PMFSH - History History Provided By: Patient - Medical History Medical History: Medical History (Last Updated 01/12/18 @ 10:21 by Ezio Mansfield MD) HTN (hypertension) Pancreatitis - Surgical History Surgical History: Surgical History (Last Reviewed 01/12/18 @ 06:30 by Kal Antony) History of orthopedic surgery - Tobacco History Second Hand Smoke Exposure: No Tobacco Use In Past 30 Days: Yes Smoking Status: Current every day smoker Tobacco Type: Cigarettes - Alcohol History How Often Do You Have a Drink Containing Alcohol: 4 or more times a week - Substance Use History Substance History: Active Abuse - Substance Use Type Marijuana Status: Active Route Used: Inhalation Reason for Use: Get High - Travel History Recent Travel in the [place] Within the Last 8 Weeks: No Recent Travel Out of the Country Within the Last 8 Weeks: No - Immunization History Tetanus Immunization: Unsure Hx Influenza Vaccine This Season: No Medications and Allergies Active Medications: Active Medications Al Hydroxide/Mg Hydroxide (Milk Of Magnesia Liq) 30 ml PO Q12H PRN PRN Reason: Mild Constipation Albuterol (Duoneb Neb (Prn)) 1 ampul NEB Q2HR NEB PRN PRN Reason: WHEEZING Amlodipine Besylate (Norvasc) 10 mg PO DAILY KAREN Bisacodyl (Dulcolax Supp) 10 mg RECTAL DAILY PRN PRN Reason: SEVERE CONSITIPATION Chlorhexidine Gluconate (Chlorhexidine 2% Cloth) 3 pack TOPICAL DAILY@0400 KAREN Stop: 01/18/18 03:59 Chlorhexidine Gluconate (Chlorhexidine 2% Cloth) 3 pack TOPICAL DAILY@0400 PRN PRN Reason: Extra cloth needed Stop: 01/18/18 03:59 Enoxaparin Sodium (Lovenox Inj) 40 mg SQ Q24H [facility] Hydralazine HCl (Apresoline Inj) 20 mg IV.PUSH Q4H PRN PRN Reason: SBP>180, DBP>110 Nicardipine HCl 25 mg/ Sodium (Chloride) 250 mls @ 50 mls/hr IV.CONT TITRATE PRN; Protocol PRN Reason: Per Protocol Potassium Chloride/Dextrose/Sod Cl (D5w/1/2ns + Kcl 20 Meq Inj) 1,000 mls @ 100 mls/hr IV.CONT .Q10H [facility] Last Admin: 01/12/18 10:06 Dose: 100 mls/hr Lactulose (Lactulose Liq) 30 ml PO DAILY PRN PRN Reason: SEVERE CONSITIPATION Metoclopramide HCl (Reglan Inj) 10 mg IV.PUSH Q6H PRN; Protocol PRN Reason: NAUSEA OR VOMITING Ondansetron HCl (Zofran Inj) 4 mg IV.PUSH Q6H PRN PRN Reason: NAUSEA OR VOMITING Oxycodone/Acetaminophen (Percocet 5/325 Mg) 1 tab PO Q4H PRN PRN Reason: SEE DOSE INSTRUCTIONS Pantoprazole Sodium (Protonix Inj) 40 mg IV.PUSH DAILY KAREN Last Admin: 01/12/18 10:05 Dose: 40 mg Senna/Docusate Sodium (Tahmina-Colace) 1 tab PO BID KAREN Sennosides (Senokot) 17.2 mg PO Q12H PRN PRN Reason: Moderate Constipation Sodium Chloride (Ns Flush) 2 ml IV.FLUSH BID KAREN Sodium Chloride (Ns Flush) 2 ml IV.FLUSH PRN PRN PRN Reason: FLUSH AFTER USING IV ACCESS Allergies Allergy/AdvReac Type Severity Reaction Status Date / Time No Known Allergies Allergy Verified 01/12/18 10:19 Home Medications Medication Instructions Recorded Confirmed Type clonidine HCl 0.1 mg PO TID 01/12/18 01/12/18 History Results - Labs CBC & Chem 7: 01/12/18 06:00 01/12/18 06:00 Labs: Short CBC 01/12/18 Range/Units 06:00 WBC 15.7 H (4.0-11.0) th/mm3 Hgb 15.6 H (11.6-15.3) gm/dL Hct 47.0 H (35.0-46.0) % Plt Count 316 (150-450) th/mm3 BMP 01/12/18 06:00 Sodium 140 Potassium 3.2 L Chloride 103 Carbon Dioxide 23.0 BUN 11 Creatinine 1.04 H Calcium 10.1 Liver Function 01/12/18 Range/Units 06:00 Total Bilirubin 0.6 (0.2-1.0) mg/dL AST 26 (15-37) U/L ALT 35 (10-53) U/L Alkaline Phosphatase 179 H (45-117) U/L Albumin 4.0 (3.4-5.0) g/dL Laboratory Results - last 24 hr 01/12/18 01/12/18 06:00 06:00 WBC 15.7 H RBC 5.59 H Hgb 15.6 H Hct 47.0 H MCV 84.0 MCH 28.0 MCHC 33.3 RDW 15.4 Plt Count 316 MPV 9.4 Neut % (Auto) 82.6 H Lymph % (Auto) 11.1 [place] % (Auto) 4.9 Eos % (Auto) 0.1 Baso % (Auto) 1.3 Neut # (Auto) 13.0 H Lymph # (Auto) 1.7 [place] # (Auto) 0.8 Eos # (Auto) 0.0 Baso # (Auto) 0.2 WBC Differential . Differential Comment Auto diff final Sodium 140 Potassium 3.2 L Chloride 103 Carbon Dioxide 23.0 Anion Gap 14 BUN 11 Creatinine 1.04 H Estimated GFR 70 L Random Glucose 125 H Calcium 10.1 Total Bilirubin 0.6 AST 26 ALT 35 Alkaline Phosphatase 179 H Total Protein 9.2 H Albumin 4.0 Lipase 65 L - Imaging Impressions Abdomen/Pelvis CT 01/12/18 06:47 CONCLUSION: 1. No abnormalities identified to account for the patient's epigastric pain. Pancreas appears normal. 2. Severe asymmetric degenerative changes of the right hip. Head CT 01/12/18 07:58 CONCLUSION: 1. Negative CT Head non contrast. Exam Vital signs: Vital Signs 01/12/18 05:03 01/12/18 05:06 01/12/18 06:17 Temperature 97.8 F Pulse Rate 82 77 Respiratory Rate 28 H 18 20 Blood Pressure 271/153 H 250/137 H Pulse Oximetry 100 100 01/12/18 06:21 01/12/18 06:33 01/12/18 08:46 Temperature Pulse Rate 75 77 Respiratory Rate 22 18 Blood Pressure 217/141 H 249/135 H 233/125 H Pulse Oximetry 97 97 01/12/18 10:11 Temperature Pulse Rate 67 Respiratory Rate 16 Blood Pressure 140/88 Pulse Oximetry 100 Intake & Output 01/11/18 01/12/18 01/12/18 18:59 06:59 18:59 Weight 129 kg Narrative: HEENT/Neuro: No pallor or icterus, tongue moist, AKASH, Awake alert oriented 3 , nonfocal grossly, moving all 4 extremities Neck: No JVD Chest/pulmonary: CTA bilaterally Cardiovascular: S1-S2 regular no gallop or murmur GI/abdomen: Soft, nontender, bowel sounds present. No organomegaly appreciated. Extremities: Warm bilaterally, no edema Caprini VTE Risk Assessment Caprini VTE Risk Assessment: Moderate/High Risk (score >= 2) Caprini Risk Assessment Model: Point Value = 1 Point Value = 2 Point Value = 3 Point Value = 5 Age 41-60 Minor surgery BMI > 25 kg/m2 Swollen legs Varicose veins or History of unexplained or recurrent spontaneous Oral contraceptives or hormone replacement Sepsis (< 1 month) Serious lung disease, including pneumonia (< 1 month) Abnormal pulmonary function Acute myocardial infarction Congestive heart failure (< 1 month) History of inflammatory bowel disease Medical patient at bed rest Age 61-74 Arthroscopic surgery Major open surgery (> 45 min) Laparoscopic surgery (> 45 min) Malignancy Confined to bed (> 72 hours) Immobilizing plaster cast Central venous access Age >= 75 History of VTE Family history of VTE Factor V Leiden Prothrombin [id number] Lupus anticoagulant Anticardiolipin antibodies Elevated serum homocysteine Heparin-induced thrombocytopenia Other congenital or acquired thrombophilia Stroke (< 1 month) Elective arthroplasty Hip, pelvis, or leg fracture Acute spinal cord injury (< 1 month) Prophylaxis Regimen: Total Risk Factor Score Risk Level Prophylaxis Regimen 0-1 Low Early ambulation 2 Moderate Order ONE of the following: *Sequential Compression Device (SCD) *Heparin 5000 units SQ BID 3-4 Higher Order ONE of the following medications: *Heparin 5000 units SQ TID *Enoxaparin/Lovenox 40 mg SQ daily (WT < 150 kg, CrCl > 30 mL/min) *Enoxaparin/Lovenox 30 mg SQ daily (WT < 150 kg, CrCl > 10-29 mL/min) *Enoxaparin/Lovenox 30 mg SQ BID (WT < 150 kg, CrCl > 30 mL/min) AND/OR *Sequential Compression Device (SCD) 5 or more Highest Order ONE of the following medications: *Heparin 5000 units SQ TID (Preferred with Epidurals) *Enoxaparin/Lovenox 40 mg SQ daily (WT < 150 kg, CrCl > 30 mL/min) *Enoxaparin/Lovenox 30 mg SQ daily (WT < 150 kg, CrCl > 10-29 mL/min) *Enoxaparin/Lovenox 30 mg SQ BID (WT < 150 kg, CrCl > 30 mL/min) AND *Sequential Compression Device (SCD) Assessment and Plan - Assessment and Plan Plan: 42-year-old female with: Chest pain Nausea vomiting Epigastric pain Uncontrolled hypertension Transient altered mental status Leukocytosis: Plan: Neuro: Follow neuro status. Possible hypertensive encephalopathy caused transient change in neurologic status which appears to have resolved. Cardiovascular: Nicardipine gtt for hypertensive urgency. Ordered clonidine as needed and Norvasc 10 mg p.o. daily. In view of chest pain and uncontrolled hypertension will obtain CTA chest abdomen pelvis to evaluate for any aortic dissection. Serial cardiac enzymes. 2D echo ordered. Pulmonary: Supplemental O2 as needed. Bronchodilators as needed. GI/liver: If CTA negative will initiate cardiac diet. Heme: Follow CBC ID: Leukocytosis noted-unclear etiology. Will obtain UA and urine cultures if indicated. Hold off on antibiotics at this time. Endocrine: Watch for hyperglycemia, SSI for glycemic control if needed. Check 24 urine for metanephrines and the of extremely high blood pressure to evaluate for pheochromocytoma. Prophylaxis: PPI/SCDs. Subcutaneous Lovenox to be initiated if CT is negative. Condition critical Time spent on critical care excluding procedures 60 minutes
[2018-01-12 10:59] LABS: Bilirubin,Urine Negative (Negative); Clarity,Urine Clear (Clear); Color,Urine Straw (Yellw/Straw); Glucose,Urine (UA) 50 mg/dL (Negative); Leukocyte Esterase,Urine Negative (Negative); Nitrite,Urine Negative (Negative); Specific Gravity,Urine 1.021 (1.002-1.035)
[2018-01-12 11:30] LABS: Amphetamine Screen,Urine Neg (Neg); Barbiturate Screen,Urine Neg (Neg); Cannabinoid Screen,Urine Pos (Neg); Cocaine Screen,Urine Neg (Neg)
[2018-01-12 11:34] LABS: Opiate Screen,Urine Neg (Neg)
[2018-01-12] MEDS ORDERED: Aspirin 325 MG Tablet PO ONE (13:00)
--- NOTE | 2018-01-12 16:16 | CT ---
EXAM DATE: 01/12/2018 4:06 PM EDT AGE/SEX: 42 years / Female INDICATIONS: Mid chest pain. CLINICAL DATA: This is the patient's initial encounter. Patient reports that signs and symptoms have been present for 1 day and indicates a pain score of 6/10. MEDICAL/SURGICAL HISTORY: Hypertension. Pancreatitis. None. RADIATION DOSE: 9.59 CTDI (mGy) COMPARISON: No prior exams available for comparison. TECHNIQUE: Multiple contiguous axial images were obtained through the chest during bolus infusion of 96 ml Omnipaque 350 (iohexol) nonionic water-soluble contrast as a single exam dose. Images were obtained in suspended respiration using multiple row detector helical technique. Using automated exp osure control and adjustment of the mA and/or kV according to patient size, radiation dose was kept a s low as reasonably achievable to obtain optimal diagnostic quality images. DICOM format image data is available electronically for review and comparison. FINDINGS: The lungs are free of acute parenchymal opacity. No pulmonary nodules or pleural effusions are identi fied. Examination of the mediastinum demonstrates no abnormally enlarged lymph nodes by CT criteria. No axi llary or hilar abnormalities are identified. Coronary artery calcifications are not present. The visu alized upper abdomen demonstrates no abnormality. CONCLUSION: No evidence of acute thoracic abnormality. No masses are identified. Electronically signed by: Andreas Moser MD 01/12/2018 4:15 PM EDT
[2018-01-12] MEDS: Enoxaparin Inj 40 MG/0.4 ML Syringe SQ SCH (18:28)
[2018-01-12 18:31] LABS: Bacteria,Urine Occasional /hpf; Bilirubin,Urine Negative (Negative); Clarity,Urine Clear (Clear); Color,Urine Yellow (Yellw/Straw); Glucose,Urine (UA) Negative (Negative); Leukocyte Esterase,Urine Negative (Negative); Nitrite,Urine Negative (Negative); Specific Gravity,Urine 1.049 (1.002-1.035); Squamous Epithelial Cell,Urine <1 /hpf (0-5)
[2018-01-12] MEDS: hydrALAZINE HCl Inj 20 MG/ML Vial IV.PUSH PRN (18:33)
[2018-01-12] MEDS: amLODIPine 10 MG Tablet PO SCH (19:15)
[2018-01-12] MEDS: Senna/Docusate Sodium 8.6/50 MG Tablet PO SCH (20:56)
[2018-01-13] MEDS ORDERED: Chlorhexidine Gluconate 2% 1 Pack (2 Cloths) TOPICAL PRN ×2 (04:00)
[2018-01-13] MEDS ORDERED: Chlorhexidine Gluconate 2% 1 Pack (2 Cloths) TOPICAL SCH (04:00)
[2018-01-13 04:13] LABS: Baso # (Auto) 0.1 th/mm3 (0.0-0.2); Baso % (Auto) 0.5 % (0.0-2.0); Eos # (Auto) 0.1 th/mm3 (0.0-0.4); Eos % (Auto) 0.4 % (0.0-4.0); Hematocrit 44.2 % (35.0-46.0); Hemoglobin 14.2 gm/dL (11.6-15.3); Lymph # (Auto) 3.4 th/mm3 (1.0-4.8); Lymph % (Auto) 23.7 % (9.0-44.0); Mean Corpuscular HGB Conc 32.1 % (32.0-36.0); Mean Corpuscular Hemoglobin 27.7 pg (27.0-34.0); Mean Corpuscular Volume 86.2 fL (80.0-100.0); Mean Platelet Volume 9.4 fL (7.0-11.0); Mono # (Auto) 1.2 th/mm3 (0.0-0.9); Mono % (Auto) 8.6 % (0.0-8.0); Neut # (Auto) 9.7 th/mm3 (1.8-7.7); Neut % (Auto) 66.8 % (16.0-70.0); Platelet Count 292 th/mm3 (150-450); Red Blood Count 5.12 mil/mm3 (4.00-5.30); Red Cell Distribution Width 15.6 % (11.6-17.2); White Blood Count 14.5 th/mm3 (4.0-11.0)
[2018-01-13 04:40] LABS: Alanine Aminotransferase 28 U/L (10-53); Albumin 3.4 g/dL (3.4-5.0); Alkaline Phosphatase 147 U/L (45-117); Anion Gap 10 meq/L (5-15); Aspartate Aminotransferase 21 U/L (15-37); Blood Urea Nitrogen 10 mg/dL (7-18); Calcium 9.3 mg/dL (8.5-10.1); Carbon Dioxide 25.4 meq/L (21.0-32.0); Chloride 107 meq/L (98-107); Glomerular Filtration Rate 77 mL/min (>89); Glucose,Random 109 mg/dL (74-106); Magnesium 2.2 mg/dL (1.5-2.5); Phosphorus 2.8 mg/dL (2.5-4.9); Potassium 3.5 meq/L (3.5-5.1); Sodium 142 meq/L (136-145); Total Protein 7.8 g/dL (6.4-8.2)
[2018-01-13] MEDS: Chlorhexidine Gluconate 2% 1 Pack (2 Cloths) TOPICAL SCH (06:22)
[2018-01-13] MEDS: hydrALAZINE HCl Inj 20 MG/ML Vial IV.PUSH PRN (08:00)
[2018-01-13] MEDS: Pantoprazole Inj 40 MG Vial IV.PUSH SCH (08:27)
[2018-01-13] MEDS: Senna/Docusate Sodium 8.6/50 MG Tablet PO SCH ×2 (08:27→21:33)
[2018-01-13] MEDS: amLODIPine 10 MG Tablet PO SCH (08:27)
--- NOTE | 2018-01-13 08:31 | P.CONCA ---
<Robin Thomas - Last Filed: 01/13/18 08:22> History of Present Illness Primary Care Provider: No Primary Care Physician Chief Complaint: Chest pain History of Present Illness: 42-year-old female with a past medical history of hypertension who presented for chest pain, neck pain and headache. Patient states that she was woken up from sleep yesterday morning with headache, neck pain, nausea, and sharp midsternal chest discomfort. She states that previously she had similar symptoms of headache, neck pain, nausea, chest pain in the past and was admitted with pancreatitis. She was also found to be in hypertensive emergency with BP 249/135, reports SBP normally running 180s at home, only on clonidine. CTs of the head, thorax, and abdomen did not show any acute process including dissection. Troponin was found to be 0.56, no repeat troponin done. EKG with voltage criteria for LVH, NSR, no ischemic changes. Patient still with headache and neck pain today, with systolic blood pressure in the 180s on nicardipine drip, no further chest pain since yesterday. Amlodipine started by primary team for this morning. Review of Systems All other systems reviewed negative except as stated in HPI PMFSH - History History Provided By: Patient - Medical History Medical History: Medical History (Last Updated 01/12/18 @ 10:21 by Ezio Mansfield MD) HTN (hypertension) Pancreatitis - Surgical History Surgical History: Surgical History (Last Reviewed 01/12/18 @ 06:30 by Kal Antony) History of orthopedic surgery - Family History Family History: Family History (Last Updated 01/13/18 @ 08:28 by BLANCHE Wilkes) Father Diabetes Mother Diabetes - Tobacco History Second Hand Smoke Exposure: Yes Tobacco Use In Past 30 Days: Yes Smoking Status: Current every day smoker Tobacco Type: Cigarettes - Alcohol History How Often Do You Have a Drink Containing Alcohol: 2 to 3 times a week - Substance Use History Substance History: Active Abuse - Substance Use Type Marijuana Status: Active Route Used: By Mouth Frequency: once a month Reason for Use: Calm Down, Feels Good - Travel History Recent Travel in the [place] Within the Last 8 Weeks: No Recent Travel Out of the Country Within the Last 8 Weeks: No - Immunization History Tetanus Immunization: Unable to Assess Hx Influenza Vaccine This Season: No Medications and Allergies Allergies Allergy/AdvReac Type Severity Reaction Status Date / Time No Known Allergies Allergy Verified 01/12/18 10:19 Home Medications Medication Instructions Recorded Confirmed Type clonidine HCl 0.1 mg PO TID 01/12/18 01/12/18 History Active Medications: Active Medications Al Hydroxide/Mg Hydroxide (Milk Of Magnesia Liq) 30 ml PO Q12H PRN PRN Reason: Mild Constipation Albuterol (Duoneb Neb (Prn)) 1 ampul NEB Q2HR NEB PRN PRN Reason: WHEEZING Amlodipine Besylate (Norvasc) 10 mg PO DAILY [facility] Last Admin: 01/12/18 19:15 Dose: Not Given Bisacodyl (Dulcolax Supp) 10 mg RECTAL DAILY PRN PRN Reason: SEVERE CONSITIPATION Chlorhexidine Gluconate (Chlorhexidine 2% Cloth) 1 pack TOPICAL DAILY@0400 PRN PRN Reason: Extra cloth needed Stop: 01/18/18 03:59 Chlorhexidine Gluconate (Chlorhexidine 2% Cloth) 3 pack TOPICAL DAILY@0400 KAREN Stop: 01/18/18 03:59 Last Admin: 01/13/18 06:22 Dose: 3 pack Enoxaparin Sodium (Lovenox Inj) 40 mg SQ Q24H [facility] Last Admin: 01/12/18 18:28 Dose: 40 mg Hydralazine HCl (Apresoline Inj) 20 mg IV.PUSH Q4H PRN PRN Reason: SBP>180, DBP>110 Last Admin: 01/12/18 18:33 Dose: 20 mg Nicardipine HCl 25 mg/ Sodium (Chloride) 250 mls @ 50 mls/hr IV.CONT TITRATE PRN; Protocol PRN Reason: Per Protocol Potassium Chloride/Dextrose/Sod Cl (D5w/1/2ns + Kcl 20 Meq Inj) 1,000 mls @ 100 mls/hr IV.CONT .Q10H [facility] Last Admin: 01/12/18 20:36 Dose: 100 mls/hr Lactulose (Lactulose Liq) 30 ml PO DAILY PRN PRN Reason: SEVERE CONSITIPATION Lorazepam (Ativan Inj) 2 mg 0.04 mg/kg (5 mg) IV.PUSH ONCE ONE Stop: 01/13/18 07:14 Metoclopramide HCl (Reglan Inj) 10 mg IV.PUSH Q6H PRN; Protocol PRN Reason: NAUSEA OR VOMITING Ondansetron HCl (Zofran Odt) 4 mg PO Q6H PRN PRN Reason: NAUSEA OR VOMITING Oxycodone/Acetaminophen (Percocet 5/325 Mg) 1 tab PO Q4H PRN PRN Reason: SEE DOSE INSTRUCTIONS Last Admin: 01/13/18 01:17 Dose: 1 tab Pantoprazole Sodium (Protonix Inj) 40 mg IV.PUSH DAILY [facility] Last Admin: 01/12/18 10:05 Dose: 40 mg Senna/Docusate Sodium (Tahmina-Colace) 1 tab PO BID [facility] Last Admin: 01/12/18 20:56 Dose: Not Given Sennosides (Senokot) 17.2 mg PO Q12H PRN PRN Reason: Moderate Constipation Sodium Chloride (Ns Flush) 2 ml IV.FLUSH BID [facility] Last Admin: 01/12/18 20:56 Dose: Not Given Sodium Chloride (Ns Flush) 2 ml IV.FLUSH PRN PRN PRN Reason: FLUSH AFTER USING IV ACCESS Exam Vital signs: Vital Signs 01/12/18 08:46 01/12/18 10:11 01/12/18 10:15 Pulse Rate 77 67 Respiratory Rate 18 16 Blood Pressure 233/125 H 140/88 Pulse Oximetry 97 100 97 01/12/18 11:13 01/12/18 11:58 01/12/18 12:00 Pulse Rate 58 L 62 59 L Respiratory Rate 18 11 L 21 Blood Pressure 140/88 142/76 H Pulse Oximetry 98 100 99 01/12/18 13:00 01/12/18 14:00 01/12/18 14:01 Pulse Rate 63 66 66 Respiratory Rate 22 41 H 28 H Blood Pressure 126/79 175/88 H Pulse Oximetry 100 100 100 01/12/18 15:01 01/12/18 15:43 01/12/18 16:00 Pulse Rate 66 58 L 63 Respiratory Rate 26 H 36 H 23 Blood Pressure 141/79 H 170/93 H 165/88 H Pulse Oximetry 100 100 99 01/12/18 16:10 01/12/18 17:00 01/12/18 17:04 Pulse Rate 61 66 59 L Respiratory Rate 21 31 H 28 H Blood Pressure 155/84 H 169/102 H 169/95 H Pulse Oximetry 100 100 100 01/12/18 18:00 01/12/18 18:17 01/12/18 18:49 Pulse Rate 59 L 72 68 Respiratory Rate 33 H 24 40 H Blood Pressure 197/99 H 185/99 H 157/67 H Pulse Oximetry 100 100 100 01/12/18 19:00 01/12/18 19:01 01/12/18 20:00 Pulse Rate 70 72 76 Respiratory Rate 36 H 43 H 39 H Blood Pressure 169/77 H 157/83 H Pulse Oximetry 99 100 100 01/12/18 21:00 01/12/18 22:00 01/12/18 23:00 Pulse Rate 66 76 61 Respiratory Rate 27 H 34 H 25 H Blood Pressure 157/78 H 148/77 H 157/81 H Pulse Oximetry 100 100 100 01/13/18 00:00 01/13/18 01:00 01/13/18 02:00 Pulse Rate 66 66 75 Respiratory Rate 23 24 20 Blood Pressure 124/66 137/77 131/67 Pulse Oximetry 99 100 97 01/13/18 03:00 01/13/18 03:18 01/13/18 04:00 Pulse Rate 99 H 62 59 L Respiratory Rate 52 H 21 30 H Blood Pressure 169/80 H Pulse Oximetry 99 100 100 01/13/18 04:01 01/13/18 05:00 01/13/18 05:01 Pulse Rate 61 90 63 Respiratory Rate 42 H 45 H 19 Blood Pressure 169/87 H 166/83 H Pulse Oximetry 100 100 100 01/13/18 06:00 01/13/18 06:02 01/13/18 06:03 Pulse Rate 61 55 L 59 L Respiratory Rate 25 H 27 H 20 Blood Pressure 181/104 H 170/110 H 168/96 H Pulse Oximetry 98 100 100 01/13/18 07:30 Pulse Rate Respiratory Rate Blood Pressure Pulse Oximetry 100 Intake & Output 01/12/18 01/13/18 01/13/18 18:59 06:59 18:59 Intake Total 350 / 350 1480 / 1480 Output Total 850 / 850 Balance 350 / 350 630 / 630 Weight 277 lb 12.519 oz 277 lb 12.519 oz Intake: IV 1000 / 1000 D5W/1/2NS + KCL 20 mEq Inj 1, 1000 / 1000 000 ML @ 100 mls/hr IV.CONT . Q10H [facility] Rx#:[id number] Oral 350 / 350 480 / 480 Output: Urine Amount (Catheter) 850 / 850 Indwelling Urethral Catheter 850 / 850 Other: Weight On Admission 277 lb 12.519 oz Narrative: GENERAL: Well-developed well-nourished. In no acute distress. NECK: No carotid bruits. No JVD. CARDIOVASCULAR: Regular rate and rhythm. No murmur appreciated. RESPIRATORY: No accessory muscle use. Clear to auscultation. Breath sounds equal bilaterally. MUSCULOSKELETAL: No clubbing or cyanosis. No edema. NEUROLOGICAL: Awake and alert. Normal speech. Results 01/13/18 03:30 01/13/18 03:30 Cardiac Enzymes 01/12/18 01/13/18 Range/Units 17:30 03:30 AST 21 (15-37) U/L Troponin I 0.56 H (0.02-0.05) ng/mL CBC 01/13/18 Range/Units 03:30 WBC 14.5 H (4.0-11.0) th/mm3 RBC 5.12 (4.00-5.30) mil/mm3 Hgb 14.2 (11.6-15.3) gm/dL Hct 44.2 (35.0-46.0) % Plt Count 292 (150-450) th/mm3 Neut # (Auto) 9.7 H (1.8-7.7) th/mm3 Lymph # (Auto) 3.4 (1.0-4.8) th/mm3 Sawyer # (Auto) 1.2 H (0.0-0.9) th/mm3 Eos # (Auto) 0.1 (0.0-0.4) th/mm3 Baso # (Auto) 0.1 (0.0-0.2) th/mm3 Comprehensive Metabolic Panel 01/13/18 Range/Units 03:30 Sodium 142 (136-145) meq/L Potassium 3.5 (3.5-5.1) meq/L Chloride 107 (98-107) meq/L Carbon Dioxide 25.4 (21.0-32.0) meq/L BUN 10 (7-18) mg/dL Creatinine 0.95 (0.50-1.00) mg/dL Calcium 9.3 D (8.5-10.1) mg/dL AST 21 (15-37) U/L ALT 28 (10-53) U/L Alkaline Phosphatase 147 H (45-117) U/L Total Protein 7.8 D (6.4-8.2) g/dL Albumin 3.4 D (3.4-5.0) g/dL Intake and Output 01/12/18 01/13/18 01/13/18 22:59 06:59 14:59 Intake Total 1350 / 1350 480 / 480 Output Total 850 / 850 Balance 1350 / 1350 -370 / -370 Intake: IV 1000 / 1000 D5W/1/2NS + KCL 20 mEq Inj 1, 1000 / 1000 000 ML @ 100 mls/hr IV.CONT . Q10H [facility] Rx#:[id number] Oral 350 / 350 480 / 480 Output: Urine Amount (Catheter) 850 / 850 Indwelling Urethral Catheter 850 / 850 Other: Weight 277 lb 12.519 oz 277 lb 12.519 oz Weight On Admission 277 lb 12.519 oz Assessment and Plan - Plan 42-year-old female with a past medical history of hypertension who presented for chest pain, neck pain and headache. Patient states that she was woken up from sleep with headache, neck pain, nausea, and sharp midsternal chest discomfort. She states that previously she had similar symptoms of headache, neck pain, nausea, chest pain in the past and was admitted with pancreatitis. She was also found to be in hypertensive emergency with BP 249/135, reports SBP normally running 180s at home, only on clonidine. CTs of the head, thorax, and abdomen did not show any acute process including dissection. Troponin was found to be 0.56, no repeat troponin done. EKG with voltage criteria for LVH, NSR, no ischemic changes. Hypertensive emergency: BP improving on nicardipine drip. Continue clonidine. Amlodipine started. Continue to monitor BP and adjust regimen as indicated. Elevated troponin: Possibly demand mediated secondary to BP vs NSTEMI. EKG without ischemic changes and no chest pain at this time. Repeat troponin. Discussed Condition With: Patient with RN at bedside, Dr. Lomax <Micah Lomax - Last Filed: 01/13/18 11:41> History of Present Illness Primary Care Provider: No Primary Care Physician [facility] - Medical History Medical History: Medical History (Last Updated 01/12/18 @ 10:21 by Ezio Mansfield MD) HTN (hypertension) Pancreatitis - Surgical History Surgical History: Surgical History (Last Reviewed 01/12/18 @ 06:30 by Kal Antony) History of orthopedic surgery - Family History Family History: Family History (Last Updated 01/13/18 @ 08:28 by BLANCHE Wilkes) Father Diabetes Mother Diabetes Medications and Allergies Active Medications: Active Medications Al Hydroxide/Mg Hydroxide (Milk Of Magnesia Liq) 30 ml PO Q12H PRN PRN Reason: Mild Constipation Albuterol (Duoneb Neb (Prn)) 1 ampul NEB Q2HR NEB PRN PRN Reason: WHEEZING Bisacodyl (Dulcolax Supp) 10 mg RECTAL DAILY PRN PRN Reason: SEVERE CONSITIPATION Chlorhexidine Gluconate (Chlorhexidine 2% Cloth) 1 pack TOPICAL DAILY@0400 PRN PRN Reason: Extra cloth needed Stop: 01/18/18 03:59 Chlorhexidine Gluconate (Chlorhexidine 2% Cloth) 3 pack TOPICAL DAILY@0400 KAREN Stop: 01/18/18 03:59 Last Admin: 01/13/18 06:22 Dose: 3 pack Enoxaparin Sodium (Lovenox Inj) 40 mg SQ Q24H [facility] Last Admin: 01/12/18 18:28 Dose: 40 mg Hydralazine HCl (Apresoline Inj) 20 mg IV.PUSH Q4H PRN PRN Reason: SBP>180, DBP>110 Last Admin: 01/13/18 08:00 Dose: 20 mg Nicardipine HCl 25 mg/ Sodium (Chloride) 250 mls @ 50 mls/hr IV.CONT TITRATE PRN; Protocol PRN Reason: Per Protocol Last Admin: 01/13/18 11:06 Dose: 15 mg/hr, 150 mls/hr Potassium Chloride/Dextrose/Sod Cl (D5w/1/2ns + Kcl 20 Meq Inj) 1,000 mls @ 100 mls/hr IV.CONT .Q10H [facility] Last Admin: 01/12/18 20:36 Dose: 100 mls/hr Lactulose (Lactulose Liq) 30 ml PO DAILY PRN PRN Reason: SEVERE CONSITIPATION Metoclopramide HCl (Reglan Inj) 10 mg IV.PUSH Q6H PRN; Protocol PRN Reason: NAUSEA OR VOMITING Ondansetron HCl (Zofran Odt) 4 mg PO Q6H PRN PRN Reason: NAUSEA OR VOMITING Oxycodone/Acetaminophen (Percocet 5/325 Mg) 1 tab PO Q4H PRN PRN Reason: SEE DOSE INSTRUCTIONS Last Admin: 01/13/18 08:35 Dose: 1 tab Pantoprazole Sodium (Protonix) 40 mg PO DAILY [facility] Senna/Docusate Sodium (Tahmina-Colace) 1 tab PO BID [facility] Last Admin: 01/13/18 08:27 Dose: 1 tab Sennosides (Senokot) 17.2 mg PO Q12H PRN PRN Reason: Moderate Constipation Sodium Chloride (Ns Flush) 2 ml IV.FLUSH BID [facility] Last Admin: 01/13/18 10:44 Dose: 2 ml Sodium Chloride (Ns Flush) 2 ml IV.FLUSH PRN PRN PRN Reason: FLUSH AFTER USING IV ACCESS Exam Vital signs: Vital Signs 01/12/18 11:58 01/12/18 12:00 01/12/18 13:00 Temperature Pulse Rate 62 59 L 63 Respiratory Rate 11 L 21 22 Blood Pressure 142/76 H 126/79 Pulse Oximetry 100 99 100 01/12/18 14:00 01/12/18 14:01 01/12/18 15:01 Temperature Pulse Rate 66 66 66 Respiratory Rate 41 H 28 H 26 H Blood Pressure 175/88 H 141/79 H Pulse Oximetry 100 100 100 01/12/18 15:43 01/12/18 16:00 01/12/18 16:10 Temperature Pulse Rate 58 L 63 61 Respiratory Rate 36 H 23 21 Blood Pressure 170/93 H 165/88 H 155/84 H Pulse Oximetry 100 99 100 01/12/18 17:00 01/12/18 17:04 01/12/18 18:00 Temperature Pulse Rate 66 59 L 59 L Respiratory Rate 31 H 28 H 33 H Blood Pressure 169/102 H 169/95 H 197/99 H Pulse Oximetry 100 100 100 01/12/18 18:17 01/12/18 18:49 01/12/18 19:00 Temperature Pulse Rate 72 68 70 Respiratory Rate 24 40 H 36 H Blood Pressure 185/99 H 157/67 H Pulse Oximetry 100 100 99 01/12/18 19:01 01/12/18 20:00 01/12/18 21:00 Temperature Pulse Rate 72 76 66 Respiratory Rate 43 H 39 H 27 H Blood Pressure 169/77 H 157/83 H 157/78 H Pulse Oximetry 100 100 100 07/15/18 22:00 01/12/18 23:00 01/13/18 00:00 Temperature Pulse Rate 76 61 66 Respiratory Rate 34 H 25 H 23 Blood Pressure 148/77 H 157/81 H 124/66 Pulse Oximetry 100 100 99 01/13/18 01:00 01/13/18 02:00 01/13/18 03:00 Temperature Pulse Rate 66 75 99 H Respiratory Rate 24 20 52 H Blood Pressure 137/77 131/67 Pulse Oximetry 100 97 99 01/13/18 03:18 01/13/18 04:00 01/13/18 04:01 Temperature Pulse Rate 62 59 L 61 Respiratory Rate 21 30 H 42 H Blood Pressure 169/80 H 169/87 H Pulse Oximetry 100 100 100 01/13/18 05:00 01/13/18 05:01 01/13/18 06:00 Temperature Pulse Rate 90 63 61 Respiratory Rate 45 H 19 25 H Blood Pressure 166/83 H 181/104 H Pulse Oximetry 100 100 98 01/13/18 06:02 01/13/18 06:03 01/13/18 07:30 Temperature Pulse Rate 55 L 59 L Respiratory Rate 27 H 20 Blood Pressure 170/110 H 168/96 H Pulse Oximetry 100 100 100 01/13/18 08:00 Temperature 98.4 F Pulse Rate 59 L Respiratory Rate 18 Blood Pressure 173/95 H Pulse Oximetry 100 Intake & Output 01/12/18 01/13/18 01/13/18 18:59 06:59 18:59 Intake Total 350 / 350 1480 / 1480 Output Total 850 / 850 Balance 350 / 350 630 / 630 Weight 126 kg 126 kg Intake: IV 1000 / 1000 D5W/1/2NS + KCL 20 mEq Inj 1, 1000 / 1000 000 ML @ 100 mls/hr IV.CONT . Q10H [facility] Rx#:[id number] Oral 350 / 350 480 / 480 Output: Urine Amount (Catheter) 850 / 850 Indwelling Urethral Catheter 850 / 850 Other: Weight On Admission 126 kg Results 01/13/18 03:30 01/13/18 03:30 Cardiac Enzymes 01/12/18 01/13/18 Range/Units 17:30 03:30 AST 21 (15-37) U/L Troponin I 0.56 H (0.02-0.05) ng/mL CBC 01/13/18 Range/Units 03:30 WBC 14.5 H (4.0-11.0) th/mm3 RBC 5.12 (4.00-5.30) mil/mm3 Hgb 14.2 (11.6-15.3) gm/dL Hct 44.2 (35.0-46.0) % Plt Count 292 (150-450) th/mm3 Neut # (Auto) 9.7 H (1.8-7.7) th/mm3 Lymph # (Auto) 3.4 (1.0-4.8) th/mm3 Sawyer # (Auto) 1.2 H (0.0-0.9) th/mm3 Eos # (Auto) 0.1 (0.0-0.4) th/mm3 Baso # (Auto) 0.1 (0.0-0.2) th/mm3 Comprehensive Metabolic Panel 01/13/18 Range/Units 03:30 Sodium 142 (136-145) meq/L Potassium 3.5 (3.5-5.1) meq/L Chloride 107 (98-107) meq/L Carbon Dioxide 25.4 (21.0-32.0) meq/L BUN 10 (7-18) mg/dL Creatinine 0.95 (0.50-1.00) mg/dL Calcium 9.3 D (8.5-10.1) mg/dL AST 21 (15-37) U/L ALT 28 (10-53) U/L Alkaline Phosphatase 147 H (45-117) U/L Total Protein 7.8 D (6.4-8.2) g/dL Albumin 3.4 D (3.4-5.0) g/dL Intake and Output 01/12/18 01/13/18 01/13/18 22:59 06:59 14:59 Intake Total 1350 / 1350 480 / 480 Output Total 850 / 850 Balance 1350 / 1350 -370 / -370 Intake: IV 1000 / 1000 D5W/1/2NS + KCL 20 mEq Inj 1, 1000 / 1000 000 ML @ 100 mls/hr IV.CONT . Q10H [facility] Rx#:[id number] Oral 350 / 350 480 / 480 Output: Urine Amount (Catheter) 850 / 850 Indwelling Urethral Catheter 850 / 850 Other: Weight 126 kg 126 kg Weight On Admission 126 kg Assessment and Plan - Attending Attestation --------- elevated troponin - demand mediated hypertensive urgency - SBP 170-200 mmHg. + headache. Cardene gtt continuos. start labetalol 300 mg BID start lisinopril 40 mg daily start HCTZ DC clonidine - rebound hypertension would be extremely dangerous in her DC amlodipine - wait to see effects of ACEi and BB. hydralazine IV PRN wean cardene gtt if SBP still elevated, add amlodipine back or hydralazine PO TID 2d echo evaluate for LVH probable lexiscan prior to DC may need to consider secondary causes of HTN workup in future. hold on urine metanephrines. hold on contrast CT abd rule out renal artery stenosis (no CKD) . if continued worsened headache, may need to rule out intracranial bleed. no neurological complaints right now
--- NOTE | 2018-01-13 12:06 | ECG ---
Date Performed: 01/12/2018 Time Performed: 05:46:17 PTAGE: 42 years EKG: Sinus rhythm VOLTAGE CRITERIA FOR LVH ABNORMAL ECG PREVIOUS TRACING : 08/18/2017 12.20 DOCTOR: Tia Floyd Interpretating Date/Time 01/13/2018 12:03:12
--- NOTE | 2018-01-13 12:22 | ECHRPT ---
Indication: HHD CONCLUSIONS The left ventricular systolic function is normal with an estimated ejection fraction in the range of 60-65%. Normal left ventricular size. Mild concentric left ventricular hypertrophy. No regional wall motion abnormalities are present. There is trace tricuspid valve regurgitation. The estimated pulmonary arterial pressure is 22 mmHg. BP: / HR: Rhythm: MEASUREMENTS (Male / Female) Normal Values Technical Quality: 2D ECHO LV Diastolic Diameter PLAX 5.0 cm 4.2 - 5.9 / 3.9 - 5.3 cm LV Systolic Diameter PLAX 3.0 cm IVS Diastolic Thickness 1.0 cm 0.6 - 1.0 / 0.6 - 0.9 cm LVPW Diastolic Thickness 1.0 cm 0.6 - 1.0 / 0.6 - 0.9 cm LV Relative Wall Thickness 0.4 RV Internal Dim ED PLAX 2.5 cm LVOT Diameter 1.8 cm LA Systolic Diameter LX 3.7 cm 3.0 - 4.0 / 2.7 - 3.8 cm M-MODE Aortic Root Diameter MM 1.8 cm LA Systolic Diameter MM 3.8 cm LA Ao Ratio MM 2.1 AV Cusp Separation MM 2.0 cm DOPPLER AV Peak Velocity 244.3 cm/s AV Peak Gradient 23.9 mmHg AV Mean Gradient 11.5 mmHg AV Velocity Time Integral 43.0 cm LVOT Peak Velocity 198.0 cm/s LVOT Peak Gradient 15.7 mmHg LVOT Velocity Time Integral 34.5 cm AV Area Cont Eq vti 2.0 cm AV Area Cont Eq pk 2.1 cm MV Area PHT 5.2 cm Mitral E Point Velocity 70.6 cm/s Mitral A Point Velocity 59.2 cm/s Mitral E to A Ratio 1.2 LV E' Lateral Velocity 8.2 cm/s Mitral E to LV E' Lateral Ratio 8.6 LV E' Septal Velocity 5.0 cm/s Mitral E to LV E' Septal Ratio 14.2 TR Peak Velocity 174.0 cm/s TR Peak Gradient 12.1 mmHg Right Atrial Pressure 10.0 mmHg Pulmonary Artery Systolic Pressu 22.1 mmHg Right Ventricular Systolic Press 22.1 mmHg PV Peak Velocity 190.0 cm/s PV Peak Gradient 14.4 mmHg FINDINGS LEFT VENTRICLE The left ventricular systolic function is normal with an estimated ejection fraction in the range of 60-65%. Normal left ventricular size. Mild concentric left ventricular hypertrophy. No regional wall motion abnormalities are present. RIGHT VENTRICLE Normal right ventricular size and systolic function. LEFT ATRIUM The left atrial size is normal. RIGHT ATRIUM The right atrial size is normal. ATRIAL SEPTUM Normal atrial septal thickness without atrial level shunting by limited color doppler interrogation. AORTA The aortic root and proximal ascending aorta are normal in size on limited imaging. MITRAL VALVE Structurally normal mitral valve. No mitral valve stenosis or regurgitation. AORTIC VALVE Trileaflet aortic valve. No aortic valve stenosis or regurgitation. TRICUSPID VALVE Structurally normal tricuspid valve. There is trace tricuspid valve regurgitation. The estimated pulmonary arterial pressure is 22 mmHg. PULMONARY VALVE No pulmonary valve regurgitation or stenosis. VESSELS The inferior vena cava is normal in size. PERICARDIUM No pericardial effusion. Otoniel Grimaldo MD (Electronically Signed) Final Date:13 January 2018 12:21
[2018-01-13] MEDS: Lisinopril 20 MG Tablet PO SCH (12:49)
[2018-01-13] MEDS: Labetalol 200 MG Tablet PO SCH ×2 (12:55→21:33)
--- NOTE | 2018-01-13 16:15 | P.PNCC ---
Subjective Subjective Remarks/Hospital Course: 01/12: 42-year-old female with a medical history significant for hypertension, pancreatitis who presented to the ER with complains of left-sided chest pain/ epigastric pain which started about 12 hours prior to presentation last evening. She was noted to have extremely high blood pressures under 240 systolic range in the ER. She underwent a CT abdomen pelvis which was unremarkable. While in CAT scan she developed altered mental status and disorientation which was transient. Head CT done following that episode was unremarkable as well with no evidence of bleed. She continued to have systolic blood pressure greater than 200. Only medication she takes at home is clonidine. 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 She does admit to drinking 1-2 alcoholic drinks(kallie) daily. ER physician ordered a nicardipine drip for blood pressure control. patient was accepted for admission by critical care medicine service. When I evaluated the patient in the ER she was laying in the ER stretcher and did not appear to be in any acute distress. In view of chest pain and uncontrolled hypertension presentation I ordered a CTA chest abdomen pelvis to evaluate for any aortic dissection. Her initial cardiac enzymes were negative. She denies any fevers chills productive cough hematemesis melena or rectal bleeding. Denies any palpitations. Denies any diarrhea. 01/13: Complaining of headache this morning. Had episode of elevated blood pressure with systolic in the 220s. Denies any chest pain this morning. Hospital did not have labetalol IV available hence clonidine ordered earlier. Patient was initiated on nicardipine drip. Cardiology evaluation noted. Objective Vital Signs / I&O: Vital Signs 01/12/18 17:00 01/12/18 17:04 01/12/18 18:00 Temperature Pulse Rate 66 59 L 59 L Respiratory Rate 31 H 28 H 33 H Blood Pressure 169/102 H 169/95 H 197/99 H Pulse Oximetry 100 100 100 01/12/18 18:17 01/12/18 18:49 01/12/18 19:00 Temperature Pulse Rate 72 68 70 Respiratory Rate 24 40 H 36 H Blood Pressure 185/99 H 157/67 H Pulse Oximetry 100 100 99 01/12/18 19:01 01/12/18 20:00 01/12/18 21:00 Temperature Pulse Rate 72 76 66 Respiratory Rate 43 H 39 H 27 H Blood Pressure 169/77 H 157/83 H 157/78 H Pulse Oximetry 100 100 100 01/12/18 22:00 01/12/18 23:00 01/13/18 00:00 Temperature Pulse Rate 76 61 66 Respiratory Rate 34 H 25 H 23 Blood Pressure 148/77 H 157/81 H 124/66 Pulse Oximetry 100 100 99 01/13/18 01:00 01/13/18 02:00 01/13/18 03:00 Temperature Pulse Rate 66 75 99 H Respiratory Rate 24 20 52 H Blood Pressure 137/77 131/67 Pulse Oximetry 100 97 99 01/13/18 03:18 01/13/18 04:00 01/13/18 04:01 Temperature Pulse Rate 62 59 L 61 Respiratory Rate 21 30 H 42 H Blood Pressure 169/80 H 169/87 H Pulse Oximetry 100 100 100 01/13/18 05:00 01/13/18 05:01 01/13/18 06:00 Temperature Pulse Rate 90 63 61 Respiratory Rate 45 H 19 25 H Blood Pressure 166/83 H 181/104 H Pulse Oximetry 100 100 98 01/13/18 06:02 01/13/18 06:03 01/13/18 07:30 Temperature Pulse Rate 55 L 59 L Respiratory Rate 27 H 20 Blood Pressure 170/110 H 168/96 H Pulse Oximetry 100 100 100 01/13/18 08:00 01/13/18 10:00 01/13/18 14:00 Temperature 98.4 F 98.4 F Pulse Rate 59 L 111 H 73 Respiratory Rate 18 18 18 Blood Pressure 173/95 H 193/104 H 108/60 Pulse Oximetry 100 100 100 Intake & Output 01/12/18 01/13/18 01/13/18 18:59 06:59 18:59 Intake Total 350 / 350 1480 / 1480 Output Total 850 / 850 Balance 350 / 350 630 / 630 Weight 126 kg 126 kg Intake: IV 1000 / 1000 D5W/1/2NS + KCL 20 mEq Inj 1, 1000 / 1000 000 ML @ 100 mls/hr IV.CONT . Q10H [facility] Rx#:[id number] Oral 350 / 350 480 / 480 Output: Urine Amount (Catheter) 850 / 850 Indwelling Urethral Catheter 850 / 850 Other: Weight On Admission 126 kg Result Diagrams: 01/13/18 03:30 01/13/18 03:30 Imaging: Abdomen/Pelvis CT 01/12/18 06:47 CONCLUSION: 1. No abnormalities identified to account for the patient's epigastric pain. Pancreas appears normal. 2. Severe asymmetric degenerative changes of the right hip. Head CT 01/12/18 07:58 CONCLUSION: 1. Negative CT Head non contrast. Chest CT 01/12/18 10:10 CONCLUSION: No evidence of acute thoracic abnormality. No masses are identified. Objective Remarks: HEENT/Neuro: No pallor or icterus, tongue moist, AKASH, Awake alert oriented 3 , nonfocal grossly, moving all 4 extremities Neck: No JVD Chest/pulmonary: CTA bilaterally Cardiovascular: S1-S2 regular no gallop or murmur GI/abdomen: Soft, nontender, bowel sounds present. No organomegaly appreciated. Extremities: Warm bilaterally, no edema Assessment and Plan - Assessment and Plan Plan: 42-year-old female with: Chest pain Nausea vomiting Epigastric pain Uncontrolled hypertension Transient altered mental status Leukocytosis: Plan: Neuro: Follow neuro status. Possible hypertensive encephalopathy caused transient change in neurologic status which appears to have resolved. Cardiovascular: Nicardipine gtt for hypertensive urgency. Clonidine normal CBC per cardiology and patient has been started on lisinopril and beta-rosa. CTA chest abdomen pelvis negative for aortic dissection. 24 hour urine for metanephrines and progress. 2D echo ordered. Pulmonary: Supplemental O2 as needed. Bronchodilators as needed. GI/liver: cardiac diet. Heme: Follow CBC ID: Leukocytosis noted-unclear etiology. Will obtain UA and urine cultures if indicated. Hold off on antibiotics at this time. Endocrine: Watch for hyperglycemia, SSI for glycemic control if needed. Check 24 urine for metanephrines and the of extremely high blood pressure to evaluate for pheochromocytoma. Prophylaxis: PPI/SCDs. Subcutaneous Lovenox Condition critical Time spent on critical care excluding procedures 30 minutes
--- NOTE | 2018-01-13 18:32 | ECG ---
Date Performed: 01/12/2018 Time Performed: 12:13:52 PTAGE: 42 years EKG: Sinus bradycardia. Prolonged QT interval Borderline ECG Compared to PREVIOUS TRACING , QT interval is elongated, T-waves appear peaked, consider electrolyte or drug abnormality. PREVIOUS TRACIN01/12/2018 05.46.17 DOCTOR: Bonifacio Brown Interpretating Date/Time 01/13/2018 18:31:42
[2018-01-13] MEDS: Enoxaparin Inj 40 MG/0.4 ML Syringe SQ SCH (21:32)
[2018-01-14] MEDS: KCL 20 mEq/D5W/NaCl 0.45% Inj 1,000 ML IV.CONT SCH (03:37)
[2018-01-14] MEDS: Chlorhexidine Gluconate 2% 1 Pack (2 Cloths) TOPICAL SCH (03:38)
--- NOTE | 2018-01-14 08:39 | P.PNCA ---
<Robin Thomas - Last Filed: 01/14/18 08:40> Subjective Interval history: Has a frontal headache which she attributes to being hungry. No further chest or neck pain. No shortness of breath. BP much better controlled, off nicardipine drip since yesterday. Heart rates have been in the 50s and labetalol has been held. Discussed with RN. Physical Exam Vital signs: Vital Signs 01/13/18 10:00 01/13/18 14:00 01/13/18 16:00 Temperature 98.4 F 98.4 F Pulse Rate 111 H 73 78 Respiratory Rate 18 18 16 Blood Pressure 193/104 H 108/60 101/53 L Pulse Oximetry 100 100 100 01/13/18 19:00 01/13/18 20:00 01/13/18 21:00 Temperature 98.8 F 98.8 F Pulse Rate 67 65 61 Respiratory Rate 22 25 H Blood Pressure 108/55 L 96/50 L Pulse Oximetry 99 99 01/13/18 22:00 01/13/18 23:00 01/14/18 00:00 Temperature Pulse Rate 61 66 70 Respiratory Rate 23 Blood Pressure 104/54 L Pulse Oximetry 98 01/14/18 01:00 01/14/18 02:00 01/14/18 03:00 Temperature 98.4 F Pulse Rate 56 L 57 L 79 Respiratory Rate 23 Blood Pressure 112/66 Pulse Oximetry 98 01/14/18 04:00 01/14/18 05:00 01/14/18 06:00 Temperature 98.4 F Pulse Rate 56 L 58 L 66 Respiratory Rate 23 Blood Pressure 112/66 Pulse Oximetry 98 01/14/18 07:00 01/14/18 08:00 Temperature 98.8 F Pulse Rate 55 L 52 L Respiratory Rate 18 Blood Pressure 119/67 Pulse Oximetry 97 Intake & Output 01/13/18 01/14/18 01/14/18 18:59 06:59 18:59 Intake Total 550 / 550 Output Total 1700 / 1700 225 / 225 Balance -1150 / -1150 -225 / -225 Weight 282 lb 3.067 oz Intake: Oral 550 / 550 Output: Urine 850 / 850 25 / 25 Urine Amount (Catheter) 850 / 850 200 / 200 Indwelling Urethral Catheter 850 / 850 200 / 200 Narrative: GENERAL: Well-developed well-nourished. In no acute distress. NECK: No carotid bruits. No JVD. CARDIOVASCULAR: Regular rate and rhythm. No murmur appreciated. RESPIRATORY: No accessory muscle use. Clear to auscultation. Breath sounds equal bilaterally. MUSCULOSKELETAL: No clubbing or cyanosis. No edema. NEUROLOGICAL: Awake and alert. Normal speech. - Urinary Catheter Management Indwelling Urethral Catheter Cath placed during this visit: yes Reason for continuing: Other continuation reason Insertion date: 01/12/18 Insertion time: 16:30 Assessment and Plan - Plan 42-year-old female with a past medical history of hypertension who presented for chest pain, neck pain and headache. Patient states that she was woken up from sleep with headache, neck pain, nausea, and sharp midsternal chest discomfort. She states that previously she had similar symptoms of headache, neck pain, nausea, chest pain in the past and was admitted with pancreatitis. She was also found to be in hypertensive emergency with BP 249/135, reports SBP normally running 180s at home, only on clonidine. CTs of the head, thorax, and abdomen did not show any acute process including dissection. Troponin was found to be 0.56. EKG with voltage criteria for LVH, NSR, no ischemic changes. Hypertensive urgency: Much better controlled today. Echo with normal EF and mild LVH. Clonidine discontinued with rebound hypertension. Lisinopril 40 mg daily started. DC labetalol with bradycardia. Resume amlodipine at 5 mg. Amlodipine started. IV hydralazine and nicardipine as needed. Continue to monitor BP and adjust regimen as indicated. Elevated troponin: Demand mediated secondary to hypertension. Troponin trending down with BP control. Check Lexiscan today. Discussed Condition With: Patient, RN, Dr. Lomax <Micah Lomax - Last Filed: 01/14/18 12:23> Physical Exam Vital signs: Vital Signs 01/13/18 14:00 01/13/18 16:00 01/13/18 19:00 Temperature 98.4 F 98.4 F 98.8 F Pulse Rate 73 78 67 Respiratory Rate 18 16 22 Blood Pressure 108/60 101/53 L 108/55 L Pulse Oximetry 100 100 99 01/13/18 20:00 01/13/18 21:00 01/13/18 21:15 Temperature 98.8 F Pulse Rate 65 61 61 Respiratory Rate 25 H 18 Blood Pressure 96/50 L 103/57 L 104/56 L Pulse Oximetry 99 98 01/13/18 21:30 01/13/18 22:00 01/13/18 22:30 Temperature Pulse Rate 73 61 63 Respiratory Rate 26 H 23 19 Blood Pressure 106/58 L 116/52 L 105/51 L Pulse Oximetry 100 98 99 01/13/18 23:00 01/13/18 23:30 01/14/18 00:00 Temperature Pulse Rate 66 61 70 Respiratory Rate 19 19 23 Blood Pressure 106/56 L 105/54 L 104/54 L Pulse Oximetry 99 98 98 01/14/18 00:30 01/14/18 01:00 01/14/18 01:30 Temperature 98.4 F Pulse Rate 63 68 63 Respiratory Rate 21 24 17 Blood Pressure 97/54 L 105/50 L 103/56 L Pulse Oximetry 96 99 97 01/14/18 02:00 01/14/18 02:31 01/14/18 03:00 Temperature Pulse Rate 57 L 70 79 Respiratory Rate 14 26 H 43 H Blood Pressure 103/53 L 101/52 L Pulse Oximetry 99 100 100 01/14/18 03:13 01/14/18 03:30 01/14/18 04:00 Temperature 98.4 F Pulse Rate 63 63 56 L Respiratory Rate 18 26 H 23 Blood Pressure 101/59 L 110/66 112/66 Pulse Oximetry 99 100 98 01/14/18 04:30 01/14/18 05:00 01/14/18 05:30 Temperature Pulse Rate 56 L 58 L 55 L Respiratory Rate 20 16 18 Blood Pressure 113/61 101/59 L 109/63 Pulse Oximetry 97 97 98 01/14/18 06:00 01/14/18 06:30 01/14/18 07:00 Temperature Pulse Rate 66 56 L 55 L Respiratory Rate 39 H 18 16 Blood Pressure 117/56 L 118/74 106/57 L Pulse Oximetry 99 100 99 01/14/18 07:31 01/14/18 08:00 01/14/18 08:30 Temperature 98.8 F Pulse Rate 60 57 L 59 L Respiratory Rate 25 H 13 22 Blood Pressure 132/69 119/67 137/81 Pulse Oximetry 99 100 99 Intake & Output 01/13/18 01/14/18 01/14/18 18:59 06:59 18:59 Intake Total 550 / 550 Output Total 1700 / 1700 225 / 225 Balance -1150 / -1150 -225 / -225 Weight 128 kg Intake: Oral 550 / 550 Output: Urine 850 / 850 25 / 25 Urine Amount (Catheter) 850 / 850 200 / 200 Indwelling Urethral Catheter 850 / 850 200 / 200 - Urinary Catheter Management Indwelling Urethral Catheter Cath placed during this visit: no Assessment and Plan - Attending Attestation BP improved. due to bradycardia. JENNIFER pickering started lexiscan
[2018-01-14] MEDS ORDERED: amLODIPine 5 MG Tablet PO SCH (09:00)
--- NOTE | 2018-01-14 10:06 | P.PNCC ---
Subjective Subjective Remarks/Hospital Course: 01/12: 42-year-old female with a medical history significant for hypertension, pancreatitis who presented to the ER with complains of left-sided chest pain/ epigastric pain which started about 12 hours prior to presentation last evening. She was noted to have extremely high blood pressures under 240 systolic range in the ER. She underwent a CT abdomen pelvis which was unremarkable. While in CAT scan she developed altered mental status and disorientation which was transient. Head CT done following that episode was unremarkable as well with no evidence of bleed. She continued to have systolic blood pressure greater than 200. Only medication she takes at home is clonidine. 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 She does admit to drinking 1-2 alcoholic drinks(kallie) daily. ER physician ordered a nicardipine drip for blood pressure control. patient was accepted for admission by critical care medicine service. When I evaluated the patient in the ER she was laying in the ER stretcher and did not appear to be in any acute distress. In view of chest pain and uncontrolled hypertension presentation I ordered a CTA chest abdomen pelvis to evaluate for any aortic dissection. Her initial cardiac enzymes were negative. She denies any fevers chills productive cough hematemesis melena or rectal bleeding. Denies any palpitations. Denies any diarrhea. 01/13: Complaining of headache this morning. Had episode of elevated blood pressure with systolic in the 220s. Denies any chest pain this morning. Hospital did not have labetalol IV available hence clonidine ordered earlier. Patient was initiated on nicardipine drip. Cardiology evaluation noted. 01/14: blood pressure controlled. off cardene. no complaints. going for stress test this AM. Objective Vital Signs / I&O: Vital Signs 01/13/18 14:00 01/13/18 16:00 01/13/18 19:00 Temperature 36.9 C 36.9 C 37.1 C Pulse Rate 73 78 67 Respiratory Rate 18 16 22 Blood Pressure 108/60 101/53 L 108/55 L Pulse Oximetry 100 100 99 01/13/18 20:00 01/13/18 21:00 01/13/18 21:15 Temperature 37.1 C Pulse Rate 65 61 61 Respiratory Rate 25 H 18 Blood Pressure 96/50 L 103/57 L 104/56 L Pulse Oximetry 99 98 01/13/18 21:30 01/13/18 22:00 01/13/18 22:30 Temperature Pulse Rate 73 61 63 Respiratory Rate 26 H 23 19 Blood Pressure 106/58 L 116/52 L 105/51 L Pulse Oximetry 100 98 99 01/13/18 23:00 01/13/18 23:30 01/14/18 00:00 Temperature Pulse Rate 66 61 70 Respiratory Rate 19 19 23 Blood Pressure 106/56 L 105/54 L 104/54 L Pulse Oximetry 99 98 98 01/14/18 00:30 01/14/18 01:00 01/14/18 01:30 Temperature 36.9 C Pulse Rate 63 68 63 Respiratory Rate 21 24 17 Blood Pressure 97/54 L 105/50 L 103/56 L Pulse Oximetry 96 99 97 01/14/18 02:00 01/14/18 02:31 01/14/18 03:00 Temperature Pulse Rate 57 L 70 79 Respiratory Rate 14 26 H 43 H Blood Pressure 103/53 L 101/52 L Pulse Oximetry 99 100 100 01/14/18 03:13 01/14/18 03:30 01/14/18 04:00 Temperature 36.9 C Pulse Rate 63 63 56 L Respiratory Rate 18 26 H 23 Blood Pressure 101/59 L 110/66 112/66 Pulse Oximetry 99 100 98 01/14/18 04:30 01/14/18 05:00 01/14/18 05:30 Temperature Pulse Rate 56 L 58 L 55 L Respiratory Rate 20 16 18 Blood Pressure 113/61 101/59 L 109/63 Pulse Oximetry 97 97 98 01/14/18 06:00 01/14/18 06:30 01/14/18 07:00 Temperature Pulse Rate 66 56 L 55 L Respiratory Rate 39 H 18 16 Blood Pressure 117/56 L 118/74 106/57 L Pulse Oximetry 99 100 99 01/14/18 07:31 01/14/18 08:00 01/14/18 08:30 Temperature 37.1 C Pulse Rate 60 57 L 59 L Respiratory Rate 25 H 13 22 Blood Pressure 132/69 119/67 137/81 Pulse Oximetry 99 100 99 Intake & Output 01/13/18 01/14/18 01/14/18 18:59 06:59 18:59 Intake Total 550 / 550 Output Total 1700 / 1700 225 / 225 Balance -1150 / -1150 -225 / -225 Weight 128 kg Intake: Oral 550 / 550 Output: Urine 850 / 850 25 / 25 Urine Amount (Catheter) 850 / 850 200 / 200 Indwelling Urethral Catheter 850 / 850 200 / 200 Result Diagrams: 01/13/18 03:30 01/13/18 03:30 Objective Remarks: HEENT/Neuro: No pallor or icterus, tongue moist, AKASH, Awake alert oriented 3 , nonfocal grossly, moving all 4 extremities Neck: No JVD Chest/pulmonary: CTA bilaterally Cardiovascular: S1-S2 regular no gallop or murmur GI/abdomen: Soft, nontender, No organomegaly appreciated. Extremities: Warm bilaterally, no edema Assessment and Plan - Assessment and Plan Plan: 42-year-old female with: Acute NSTEMI: type I vs. II Hypertensive Emergency- resolved. Chest pain Nausea vomiting Epigastric pain Uncontrolled hypertension Transient altered mental status Leukocytosis: Plan: Neuro: Follow neuro status. Possible hypertensive encephalopathy caused transient change in neurologic status which appears to have resolved. Cardiovascular: d/c cardene drip. Clonidine normal CBC per cardiology and patient has been started on lisinopril and beta-rosa. CTA chest abdomen pelvis negative for aortic dissection. 24 hour urine for metanephrines and progress. 2D echo ordered. cards following. f/u stress test. Pulmonary: Supplemental O2 as needed. Bronchodilators as needed. GI/liver: cardiac diet. Heme: Follow CBC ID: Leukocytosis noted-unclear etiology. Will obtain UA and urine cultures if indicated. Hold off on antibiotics at this time. Endocrine: Watch for hyperglycemia, SSI for glycemic control if needed. Check 24 urine for metanephrines and the of extremely high blood pressure to evaluate for pheochromocytoma. Prophylaxis: PPI/SCDs. Subcutaneous Lovenox Dispo: transfer out of ICU. consult hospitalist.
[2018-01-14] MEDS ORDERED: Regadenoson Inj 0.4 MG/5 ML Syringe IV.PUSH ONE (10:58)
--- NOTE | 2018-01-14 12:05 | NM ---
EXAM DATE: 01/14/2018 11:55 AM EDT AGE/SEX: 42 years / Female INDICATIONS:Angina. . Chest pain and headache. CLINICAL DATA: This is the patient's initial encounter. Patient reports that signs and symptoms have been present for 1 day and indicates a pain score of 0/10. MEDICAL/SURGICAL HISTORY: Hypertension. Pancreatitis. . Orthopedic. COMPARISON: No prior exams available for comparison. DOSE: 10 mCi Tc 99m Myoview at rest 30 mCi [id number] at stress 0.4 mg Lexiscan STRESS SYMPTOMS: Dyspnea. EJECTION FRACTION: 62 % TECHNIQUE: The patient underwent pharmacologic stress with infusion of prescribed dose. Continuous ECG tracing was monitored during stress. Gated SPECT imaging was performed after stress and conventi onal SPECT imaging was performed at rest. The examination was performed on a SPECT/CT scanner, both attenuation and non-corrected datasets were reviewed. FINDINGS: Distribution: The maximum perfused segment at stress is in the lateral wall. Perfusion Study: The pattern of perfusion at stress is within normal limits. Gated Study: There are intact wall motion and wall thickening without hypokinetic or dyskinetic segm ents. The ejection fraction is calculated at 62%. RISK CATEGORY: Low (<1% Annual Motality Rate) CONCLUSION: 1. No appreciable ischemia. Electronically signed by: Jose Miguel Polanco MD 01/14/2018 12:04 PM EDT
[2018-01-14] MEDS: Senna/Docusate Sodium 8.6/50 MG Tablet PO SCH ×2 (13:06→23:11)
[2018-01-14] MEDS: Lisinopril 20 MG Tablet PO SCH (13:07)
[2018-01-15] MEDS: KCL 20 mEq/D5W/NaCl 0.45% Inj 1,000 ML IV.CONT SCH ×3 (04:50→17:23)
[2018-01-15] MEDS: Chlorhexidine Gluconate 2% 1 Pack (2 Cloths) TOPICAL SCH (04:51)
--- NOTE | 2018-01-15 08:54 | P.PNCA ---
Subjective Interval history: Feeling better. Still with mild ASCENCIO. no chest pain or dyspnea. NST yesterday was negative for ischemia. BP still elevated 150-160s. Physical Exam Vital signs: Vital Signs 01/14/18 09:00 01/14/18 09:52 01/14/18 10:00 Temperature Pulse Rate 55 L 58 L 58 L Respiratory Rate 22 60 H 22 Blood Pressure 120/69 137/48 L Pulse Oximetry 100 99 01/14/18 12:00 01/14/18 12:37 01/14/18 12:38 Temperature 98.4 F Pulse Rate 63 77 Respiratory Rate 22 21 Blood Pressure 143/97 H 143/97 H Pulse Oximetry 100 01/14/18 12:51 01/14/18 13:00 01/14/18 13:30 Temperature Pulse Rate 63 62 Respiratory Rate 26 H 26 H Blood Pressure 161/84 H 162/90 H Pulse Oximetry 98 100 95 01/14/18 14:00 01/14/18 14:28 01/14/18 14:30 Temperature Pulse Rate 75 70 60 Respiratory Rate 34 H 28 H 34 H Blood Pressure 137/86 134/72 Pulse Oximetry 100 01/14/18 15:00 01/14/18 15:30 01/14/18 16:00 Temperature 100.3 F H Pulse Rate 62 88 68 Respiratory Rate 35 H 40 H 42 H Blood Pressure 135/85 157/95 H 163/90 H Pulse Oximetry 01/14/18 16:30 01/14/18 17:00 01/14/18 17:30 Temperature Pulse Rate 55 L 57 L 57 L Respiratory Rate 19 23 23 Blood Pressure 152/72 H 153/89 H 163/88 H Pulse Oximetry 01/14/18 18:00 01/14/18 18:30 01/14/18 19:00 Temperature Pulse Rate 62 59 L 59 L Respiratory Rate 28 H 24 26 H Blood Pressure 172/91 H 153/87 H 143/79 H Pulse Oximetry 01/14/18 19:30 01/14/18 20:00 01/14/18 20:26 Temperature 97.9 F Pulse Rate 60 90 59 L Respiratory Rate 22 28 H 19 Blood Pressure 140/71 130/63 130/63 Pulse Oximetry 97 99 01/14/18 20:30 01/14/18 21:00 01/14/18 21:30 Temperature Pulse Rate 61 57 L 61 Respiratory Rate 26 H 23 17 Blood Pressure 132/63 135/65 122/66 Pulse Oximetry 97 94 L 95 01/14/18 22:00 01/14/18 22:30 01/14/18 23:00 Temperature Pulse Rate 59 L 57 L 60 Respiratory Rate 26 H 19 21 Blood Pressure 134/78 129/85 148/86 H Pulse Oximetry 97 98 97 01/14/18 23:30 01/15/18 00:00 01/15/18 00:09 Temperature 98.1 F Pulse Rate 54 L 57 L Respiratory Rate 18 25 H Blood Pressure 141/84 H 139/89 Pulse Oximetry 97 99 100 01/15/18 00:30 01/15/18 01:00 01/15/18 01:11 Temperature Pulse Rate 61 81 57 L Respiratory Rate 21 22 19 Blood Pressure 133/86 178/98 H 160/104 H Pulse Oximetry 99 96 99 01/15/18 01:31 01/15/18 02:00 01/15/18 02:31 Temperature Pulse Rate 63 57 L 55 L Respiratory Rate 33 H 16 21 Blood Pressure 159/84 H 159/82 H 168/85 H Pulse Oximetry 97 96 94 L 01/15/18 03:00 01/15/18 03:30 01/15/18 04:00 Temperature Pulse Rate 82 61 74 Respiratory Rate 21 18 21 Blood Pressure 161/89 H 143/109 H 151/88 H Pulse Oximetry 96 100 97 01/15/18 04:31 01/15/18 04:36 01/15/18 04:59 Temperature Pulse Rate 65 57 L Respiratory Rate 34 H 21 Blood Pressure 194/103 H 182/87 H Pulse Oximetry 97 99 98 01/15/18 05:00 01/15/18 05:01 01/15/18 05:30 Temperature Pulse Rate 55 L 56 L 61 Respiratory Rate 23 30 H 23 Blood Pressure 183/88 H 186/117 H Pulse Oximetry 100 100 99 01/15/18 06:00 01/15/18 06:04 01/15/18 06:30 Temperature Pulse Rate 67 58 L 57 L Respiratory Rate 33 H 23 15 Blood Pressure 154/78 H 140/88 Pulse Oximetry 99 96 98 01/15/18 07:00 Temperature Pulse Rate 57 L Respiratory Rate 26 H Blood Pressure 162/99 H Pulse Oximetry 100 Intake & Output 07/01/15/18 01/15/18 18:59 06:59 18:59 Intake Total 450 / 450 1240 / 1240 Output Total 300 / 300 Balance 150 / 150 1240 / 1240 Weight 127.5 kg Intake: IV 1000 / 1000 D5W/1/2NS + KCL 20 mEq Inj 1, 1000 / 1000 000 ML @ 100 mls/hr IV.CONT . Q10H KAREN Rx#:[id number] Oral 450 / 450 240 / 240 Output: Urine 300 / 300 Other: # Voids 4 GENERAL: SKIN: Warm and dry. HEAD: Atraumatic. Normocephalic. NECK: Trachea midline. No JVD. CARDIOVASCULAR: Regular rate and rhythm. RESPIRATORY: No accessory muscle use. Clear to auscultation. Breath sounds equal bilaterally. GASTROINTESTINAL: Abdomen soft, non-tender, nondistended. MUSCULOSKELETAL: Extremities without clubbing, cyanosis, or edema. No obvious deformities. NEUROLOGICAL: Awake and alert. No obvious cranial nerve deficits. Normal speech. PSYCHIATRIC: Appropriate mood and affect; insight and judgment normal. - Urinary Catheter Management Indwelling Urethral Catheter Cath placed during this visit: yes Reason for continuing: Other continuation reason Insertion date: 01/12/18 Insertion time: 16:30 Assessment and Plan - Plan 42-year-old female with a past medical history of hypertension who presented for chest pain, neck pain and headache. Patient states that she was woken up from sleep with headache, neck pain, nausea, and sharp midsternal chest discomfort. She states that previously she had similar symptoms of headache, neck pain, nausea, chest pain in the past and was admitted with pancreatitis. She was also found to be in hypertensive emergency with BP 249/135, reports SBP normally running 180s at home, only on clonidine. CTs of the head, thorax, and abdomen did not show any acute process including dissection. Troponin was found to be 0.56. EKG with voltage criteria for LVH, NSR, no ischemic changes. Hypertensive urgency: BP still elevated. Start spironolactone 25mg daily and when d/c on this, will need bmp in 2-3 weeks with f/u with PCP to monitor Cr/K+ . Echo with normal EF and mild LVH. Lexiscan neg for ischemia. Clonidine discontinued with rebound hypertension. continue Lisinopril 40 mg daily, increase amlodipine to 5mg bid. Elevated troponin: Demand mediated secondary to hypertension. Troponin trending down with BP control. Lexiscan negative for ischemia. will sign off. call if questions.
[2018-01-15] MEDS ORDERED: amLODIPine 10 MG Tablet PO SCH (09:00)
[2018-01-15] MEDS ORDERED: Spironolactone 25 MG Tablet PO SCH (09:00)
[2018-01-15] MEDS: Lisinopril 20 MG Tablet PO SCH (09:17)
[2018-01-15] MEDS: Senna/Docusate Sodium 8.6/50 MG Tablet PO SCH ×2 (09:17→22:22)
[2018-01-15] MEDS: Enoxaparin Inj 40 MG/0.4 ML Syringe SQ SCH ×2 (14:34→17:23)
--- NOTE | 2018-01-15 16:48 | P.PNIM ---
Subjective Interval history: This is a 42-year-old female with a medical history significant for hypertension and pancreatitis who presented to the ER on 01/12/18 with complains of left-sided chest pain/epigastric pain which started about 12 hours prior to presentation last evening. She was noted to have extremely high blood pressures under 240 systolic range in the ER. She underwent a CT abdomen pelvis which was unremarkable. While in CAT scan she developed altered mental status and disorientation which was transient. Head CT done following that episode was unremarkable as well with no evidence of bleed. She continued to have systolic blood pressure greater than 200. Only medication she takes at home is clonidine. 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 She does admit to drinking 1- 2 alcoholic drinks(kallie) daily. ER physician ordered a nicardipine drip for blood pressure control. Patient was accepted for admission by critical care medicine service. Nicardipine drip has been weaned and patient is currently on Norvasc 10 mg PO daily, lisinopril 40 mg PO daily and Spirolactone 25 mg PO daily. Blood pressure have improved and are running between 129/85 to 162/99. Patient has been transferred out of ICU and we have been consulted to assume care. Patient reports feeling better than she did on admission, no longer confused no longer having headache. Patient asking when she can go home. Physical Exam Vital signs: Vital Signs 01/14/18 17:00 01/14/18 17:30 01/14/18 18:00 Temperature Pulse Rate 57 L 57 L 62 Respiratory Rate 23 23 28 H Blood Pressure 153/89 H 163/88 H 172/91 H Pulse Oximetry 01/14/18 18:30 01/14/18 19:00 01/14/18 19:30 Temperature Pulse Rate 59 L 59 L 60 Respiratory Rate 24 26 H 22 Blood Pressure 153/87 H 143/79 H 140/71 Pulse Oximetry 01/14/18 20:00 01/14/18 20:26 01/14/18 20:30 Temperature 97.9 F Pulse Rate 90 59 L 61 Respiratory Rate 28 H 19 26 H Blood Pressure 130/63 130/63 132/63 Pulse Oximetry 97 99 97 01/14/18 21:00 01/14/18 21:30 01/14/18 22:00 Temperature Pulse Rate 57 L 61 59 L Respiratory Rate 23 17 26 H Blood Pressure 135/65 122/66 134/78 Pulse Oximetry 94 L 95 97 01/14/18 22:30 01/14/18 23:00 01/14/18 23:30 Temperature Pulse Rate 57 L 60 54 L Respiratory Rate 19 21 18 Blood Pressure 129/85 148/86 H 141/84 H Pulse Oximetry 98 97 97 01/15/18 00:00 01/15/18 00:09 01/15/18 00:30 Temperature 98.1 F Pulse Rate 57 L 61 Respiratory Rate 25 H 21 Blood Pressure 139/89 133/86 Pulse Oximetry 99 100 99 01/15/18 01:00 01/15/18 01:11 01/15/18 01:31 Temperature Pulse Rate 81 57 L 63 Respiratory Rate 22 19 33 H Blood Pressure 178/98 H 160/104 H 159/84 H Pulse Oximetry 96 99 97 01/15/18 02:00 01/15/18 02:31 01/15/18 03:00 Temperature Pulse Rate 57 L 55 L 82 Respiratory Rate 16 21 21 Blood Pressure 159/82 H 168/85 H 161/89 H Pulse Oximetry 96 94 L 96 01/15/18 03:30 01/15/18 04:00 01/15/18 04:31 Temperature Pulse Rate 61 74 65 Respiratory Rate 18 21 34 H Blood Pressure 143/109 H 151/88 H 194/103 H Pulse Oximetry 100 97 97 01/15/18 04:36 01/15/18 04:59 01/15/18 05:00 Temperature Pulse Rate 57 L 55 L Respiratory Rate 21 23 Blood Pressure 182/87 H Pulse Oximetry 99 98 100 01/15/18 05:01 01/15/18 05:30 01/15/18 06:00 Temperature Pulse Rate 56 L 61 67 Respiratory Rate 30 H 23 33 H Blood Pressure 183/88 H 186/117 H Pulse Oximetry 100 99 99 01/15/18 06:04 01/15/18 06:30 01/15/18 07:00 Temperature Pulse Rate 58 L 57 L 57 L Respiratory Rate 23 15 26 H Blood Pressure 154/78 H 140/88 162/99 H Pulse Oximetry 96 98 100 01/15/18 08:00 01/15/18 10:00 01/15/18 12:00 Temperature 98.2 F 98.5 F Pulse Rate 58 L 59 L 60 Respiratory Rate 15 15 14 Blood Pressure 129/85 151/88 H Pulse Oximetry 99 98 Intake & Output 01/14/18 01/15/18 01/15/18 18:59 06:59 18:59 Intake Total 450 / 450 1240 / 1240 1000 / 1000 Output Total 300 / 300 Balance 150 / 150 1240 / 1240 1000 / 1000 Weight 127.5 kg Intake: IV 1000 / 1000 1000 / 1000 D5W/1/2NS + KCL 20 mEq Inj 1, 1000 / 1000 1000 / 1000 000 ML @ 100 mls/hr IV.CONT . Q10H KAREN Rx#:[id number] Oral 450 / 450 240 / 240 Output: Urine 300 / 300 Other: # Voids 4 Narrative: GENERAL: This is a well-nourished, well-developed patient, in no apparent distress. CARDIOVASCULAR: Regular rate and rhythm RESPIRATORY: Clear to auscultation. Breath sounds equal bilaterally. GASTROINTESTINAL: Abdomen soft, non-tender, nondistended. Normal active bowel sounds MUSCULOSKELETAL: Extremities without clubbing, cyanosis, or edema. NEURO: Alert & Oriented x4 to person, place, time, situation. Moves all ext x4 - Urinary Catheter Management Indwelling Urethral Catheter Cath placed during this visit: yes Reason for continuing: Other continuation reason Insertion date: 01/12/18 Insertion time: 16:30 Results - Labs CBC & Chem 7: 01/13/18 03:30 01/13/18 03:30 Microbiology 01/12/18 16:30 Catheterized Urine Urine Culture - Preliminary Immature growth - reincubate Assessment and Plan - Plan HTN urgency presented to ER with BP of 249/135 Initially treated in ICU on Nicardipine drip which has been weaned confusion on admission possible hypertensive encephalopathy caused transient change in neurologic status which appears to have resolved. currently on Norvasc 10 mg PO daily, lisinopril 40 mg PO daily and Spirolactone 25 mg PO daily. Blood pressure have improved and are running between 129/85 to 162/99 01/15/18 Patient has been transferred out of ICU and we have been consulted to assume care. Patient reports feeling better than she did on admission, no longer confused. Continues to have mild intermitted headache which is better with Tylenol. Patient asking when she can go home. confusion on admission possible hypertensive encephalopathy caused transient change in neurologic status which appears to have resolved. CT head negative CT head noncontrast CT chest No evidence of acute thoracic abnormality. No masses are identified. CTA chest abdomen pelvis negative for aortic dissection. 24 hour urine for metanephrines pending Patient asking to go home, agrees to stay on more night for continued monitoring of BP plan to DC tomorrow patient instructed to keep a home BP log and follow up with PCP in 1 week Elevated troponin- likely related to demand from HTN chest pain - likely related to HTN 2D echo The left ventricular systolic function is normal with an estimated ejection fraction in the range of 60-65%. Normal left ventricular size. Mild concentric left ventricular hypertrophy. No regional wall motion abnormalities are present. There is trace tricuspid valve regurgitation. The estimated pulmonary arterial pressure is 22 mmHg. consult to cardiology Lexiscan negative for ischemia. cardiology signed off DVT Prophylaxis with Subcutaneous Lovenox - Attending Attestation Patient examined. Assessment and plan formulated with Lilia Sutton PA-C. I agree with the above.
--- NOTE | 2018-01-15 17:18 | P.DS ---
<Lilia Sutton W - Last Filed: 01/15/18 17:15> Date of admission: 01/12/18 09:29 Primary care physician: No Primary Care Physician Attending physician on discharge: Branden Roberts Anticipated date of discharge: 01/16/18 Brief History from admission: 42-year-old female with a medical history significant for hypertension, pancreatitis who presented to the ER with complains of left-sided chest pain/ epigastric pain which started about 12 hours prior to presentation last evening. She was noted to have extremely high blood pressures under 240 systolic range in the ER. She underwent a CT abdomen pelvis which was unremarkable. While in CAT scan she developed altered mental status and disorientation which was transient. Head CT done following that episode was unremarkable as well with no evidence of bleed. She continued to have systolic blood pressure greater than 200. Only medication she takes at home is clonidine. 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 She does admit to drinking 1-2 alcoholic drinks(kallie) daily. ER physician ordered a nicardipine drip for blood pressure control. patient was accepted for admission by critical care medicine service. When I evaluated the patient in the ER she was laying in the ER stretcher and did not appear to be in any acute distress. In view of chest pain and uncontrolled hypertension presentation I ordered a CTA chest abdomen pelvis to evaluate for any aortic dissection. Her initial cardiac enzymes were negative. She denies any fevers chills productive cough hematemesis melena or rectal bleeding. Denies any palpitations. Denies any diarrhea. DS: Diagnosis - Discharge Diagnosis (1) Encephalopathy acute Status: Acute (2) Hypertensive emergency Status: Acute DS: Medications - Discharge Medications Prescriptions: amlodipine [Norvasc] 10 mg PO DAILY 30 Days #30 tab lisinopril 40 mg PO DAILY 30 Days tab spironolactone [Aldactone] 25 mg PO DAILY 30 Days #30 tab DS: Summary Hospital Course: HTN urgency presented to ER with BP of 249/135 Initially treated in ICU on Nicardipine drip which has been weaned confusion on admission possible hypertensive encephalopathy caused transient change in neurologic status which appears to have resolved. currently on Norvasc 10 mg PO daily, lisinopril 40 mg PO daily and Spirolactone 25 mg PO daily. Blood pressure have improved and are running between 129/85 to 162/99 01/15/18 Patient has been transferred out of ICU and we have been consulted to assume care. Patient reports feeling better than she did on admission, no longer confused. Continues to have mild intermitted headache which is better with Tylenol. Patient asking when she can go home. confusion on admission possible hypertensive encephalopathy caused transient change in neurologic status which appears to have resolved. CT head negative CT head noncontrast CT chest No evidence of acute thoracic abnormality. No masses are identified. CTA chest abdomen pelvis negative for aortic dissection. 24 hour urine for metanephrines pending Patient asking to go home patient instructed to keep a home BP log and follow up with PCP in 1 week Elevated troponin- likely related to demand from HTN chest pain - likely related to HTN 2D echo The left ventricular systolic function is normal with an estimated ejection fraction in the range of 60-65%. Normal left ventricular size. Mild concentric left ventricular hypertrophy. No regional wall motion abnormalities are present. There is trace tricuspid valve regurgitation. The estimated pulmonary arterial pressure is 22 mmHg. consult to cardiology Lexiscan negative for ischemia. cardiology signed off - Time Spent with Patient Total time spent providing and/or coordinating discharge services: - Quality: VTE Deep Vein Thrombosis/Pulmonary Embolism Present on Admission: No Exam Vital signs: Vital Signs 01/14/18 17:30 01/14/18 18:00 01/14/18 18:30 Temperature Pulse Rate 57 L 62 59 L Respiratory Rate 23 28 H 24 Blood Pressure 163/88 H 172/91 H 153/87 H Pulse Oximetry 01/14/18 19:00 01/14/18 19:30 01/14/18 20:00 Temperature 97.9 F Pulse Rate 59 L 60 90 Respiratory Rate 26 H 22 28 H Blood Pressure 143/79 H 140/71 130/63 Pulse Oximetry 97 01/14/18 20:26 01/14/18 20:30 01/14/18 21:00 Temperature Pulse Rate 59 L 61 57 L Respiratory Rate 19 26 H 23 Blood Pressure 130/63 132/63 135/65 Pulse Oximetry 99 97 94 L 01/14/18 21:30 01/14/18 22:00 01/14/18 22:30 Temperature Pulse Rate 61 59 L 57 L Respiratory Rate 17 26 H 19 Blood Pressure 122/66 134/78 129/85 Pulse Oximetry 95 97 98 01/14/18 23:00 01/14/18 23:30 01/15/18 00:00 Temperature 98.1 F Pulse Rate 60 54 L 57 L Respiratory Rate 21 18 25 H Blood Pressure 148/86 H 141/84 H 139/89 Pulse Oximetry 97 97 99 01/15/18 00:09 01/15/18 00:30 01/15/18 01:00 Temperature Pulse Rate 61 81 Respiratory Rate 21 22 Blood Pressure 133/86 178/98 H Pulse Oximetry 100 99 96 01/15/18 01:11 01/15/18 01:31 01/15/18 02:00 Temperature Pulse Rate 57 L 63 57 L Respiratory Rate 19 33 H 16 Blood Pressure 160/104 H 159/84 H 159/82 H Pulse Oximetry 99 97 96 01/15/18 02:31 01/15/18 03:00 01/15/18 03:30 Temperature Pulse Rate 55 L 82 61 Respiratory Rate 21 21 18 Blood Pressure 168/85 H 161/89 H 143/109 H Pulse Oximetry 94 L 96 100 01/15/18 04:00 01/15/18 04:31 01/15/18 04:36 Temperature Pulse Rate 74 65 57 L Respiratory Rate 21 34 H 21 Blood Pressure 151/88 H 194/103 H 182/87 H Pulse Oximetry 97 97 99 01/15/18 04:59 01/15/18 05:00 01/15/18 05:01 Temperature Pulse Rate 55 L 56 L Respiratory Rate 23 30 H Blood Pressure 183/88 H Pulse Oximetry 98 100 100 01/15/18 05:30 01/15/18 06:00 01/15/18 06:04 Temperature Pulse Rate 61 67 58 L Respiratory Rate 23 33 H 23 Blood Pressure 186/117 H 154/78 H Pulse Oximetry 99 99 96 01/15/18 06:30 01/15/18 07:00 01/15/18 08:00 Temperature Pulse Rate 57 L 57 L 58 L Respiratory Rate 15 26 H 15 Blood Pressure 140/88 162/99 H Pulse Oximetry 98 100 01/15/18 10:00 01/15/18 12:00 Temperature 98.2 F 98.5 F Pulse Rate 59 L 60 Respiratory Rate 15 14 Blood Pressure 129/85 151/88 H Pulse Oximetry 99 98 Intake & Output 01/14/18 01/15/18 01/15/18 18:59 06:59 18:59 Intake Total 450 / 450 1240 / 1240 1000 / 1000 Output Total 300 / 300 Balance 150 / 150 1240 / 1240 1000 / 1000 Weight 127.5 kg Intake: IV 1000 / 1000 1000 / 1000 D5W/1/2NS + KCL 20 mEq Inj 1, 1000 / 1000 1000 / 1000 000 ML @ 100 mls/hr IV.CONT . Q10H KAREN Rx#:[id number] Oral 450 / 450 240 / 240 Output: Urine 300 / 300 Other: # Voids 4 Narrative: GENERAL: This is a well-nourished, well-developed patient, in no apparent distress. CARDIOVASCULAR: Regular rate and rhythm RESPIRATORY: Clear to auscultation. Breath sounds equal bilaterally. GASTROINTESTINAL: Abdomen soft, non-tender, nondistended. Normal active bowel sounds MUSCULOSKELETAL: Extremities without clubbing, cyanosis, or edema. NEURO: Alert & Oriented x4 to person, place, time, situation. Moves all ext x4 Results Procedures completed during hospitalization: none Labs on day of discharge: Preliminary micro results at discharge 01/12/18 16:30 Urine Culture - Preliminary Catheterized Urine Immature growth - reincubate - Impressions ITS Impressions Abdomen/Pelvis CT 01/12/18 06:47 CONCLUSION: 1. No abnormalities identified to account for the patient's epigastric pain. Pancreas appears normal. 2. Severe asymmetric degenerative changes of the right hip. Head CT 01/12/18 07:58 CONCLUSION: 1. Negative CT Head non contrast. Chest CT 01/12/18 10:10 CONCLUSION: No evidence of acute thoracic abnormality. No masses are identified. Myocardial Perfusion Scan Nuc Med 01/14/18 00:00 CONCLUSION: 1. No appreciable ischemia. <Branden Roberts - Last Filed: 01/20/18 23:57> Date of admission: 01/12/18 09:29 Primary care physician: No Primary Care Physician DS: Summary Hospital Course: Patient examined. Assessment and plan formulated with Lilia Sutton PA-C. I agree with the above. - Time Spent with Patient Total time spent providing and/or coordinating discharge services: Greater than 30 minutes Results - Impressions ITS Impressions Abdomen/Pelvis CT 01/12/18 06:47 CONCLUSION: 1. No abnormalities identified to account for the patient's epigastric pain. Pancreas appears normal. 2. Severe asymmetric degenerative changes of the right hip. Head CT 01/12/18 07:58 CONCLUSION: 1. Negative CT Head non contrast. Chest CT 01/12/18 10:10 CONCLUSION: No evidence of acute thoracic abnormality. No masses are identified. Myocardial Perfusion Scan Nuc Med 01/14/18 00:00 CONCLUSION: 1. No appreciable ischemia. Discharge Plan - Discharge Order Discharge Orders: Discharge Order (Routine); Ordered 01/16/18 Ordered By: Lilia Sutton - Discharge Details Anticipated Discharge Date: 01/16/18 - Physicians Team Primary Care Provider: Primary Care Physici,No Attending Provider: Branden Roberts Other Providers: Micah Lomxa MD ; Branden Roberts, DO
[2018-01-16] MEDS: Chlorhexidine Gluconate 2% 1 Pack (2 Cloths) TOPICAL SCH (03:42)
== END 2018-01-16 06:50 | disposition home or self-care (01) ==
LOC: NEPC 05:01 → NEDA 09:29 → HIMC 11:52 → N05 01-15 15:14
PROVIDERS: ADMIT Hospitalist; ATTEND Hospitalist

== ENCOUNTER 2018-02-10 16:39 | Inpatient (IN) ==
--- NOTE | 2018-02-10 18:49 | ECG ---
Date Performed: 02/10/2018 Time Performed: 17:11:07 PTAGE: 42 years EKG: Sinus rhythm NORMAL ECG Compared to prior electrocardiogram, Rate has increased and T-wave amplitude has decrease d. PREVIOUS TRACING : 01/12/2018 12.13 DOCTOR: Jesus Galarza Interpretating Date/Time 02/10/2018 18:47:33
[2018-02-10] MEDS ORDERED: Labetalol HCl Inj 100 MG/20 ML Vial IV.PUSH ONE ×2 (19:32→20:35)
[2018-02-10] MEDS ORDERED: Sod Chloride 0.9% Inj 1,000 ML IV.SIG ONE (19:32)
--- NOTE | 2018-02-10 19:51 | XR ---
EXAM DATE: 02/10/2018 7:45 PM EDT AGE/SEX: 42 years / Female INDICATIONS: Chest pain. CLINICAL DATA: This is the patient's initial encounter. Patient reports that signs and symptoms have been present for 1 day and indicates a pain score of 5/10. MEDICAL/SURGICAL HISTORY: . Hypertension. Pancreatitis None. COMPARISON: [facility] – [place], CHEST SINGLE AP, 08/18/2017. . FINDINGS: A single AP view of the chest demonstrates the lungs to be symmetrically aerated without evidence of mass, infiltrate or effusion. The cardiomediastinal contours are unremarkable. Osseous structures a re intact. CONCLUSION: No acute cardiopulmonary disease. Electronically signed by: Wilfrid Mccullough MD 02/10/2018 7:50 PM EDT
--- NOTE | 2018-02-10 19:57 | ED ---
HPI General Chief complaint: Chest Pain Stated complaint: Vomiting/elevated pressure Time Seen by Provider: 02/10/18 19:25 Source: patient, RN notes reviewed and old records reviewed Mode of arrival: ambulatory History of Present Illness HPI narrative: 42yF presenting with nausea, vomiting, chest pain, and elevated BP. The patient was admitted to our institution from 01/12-01/15/18 for pancreatitis and hypertensive encephalopathy; she says that earlier today, she began to have epigastric abdominal pain which radiates up through her chest, "sharp", constant, not made better or worse by anything, severe, associated with nausea and multiple episodes of vomiting. She reports similar symptoms the last time she was admitted. Denies fever or chills, cough, back pain, diarrhea, or dysuria. She reports that she took her antihypertensives today but vomited them up shortly thereafter. Related Data Previous Rx's Medication Instructions Recorded amlodipine [Norvasc] 10 mg PO DAILY 30 Days #30 tab 01/15/18 lisinopril 40 mg PO DAILY 30 Days tab 01/15/18 spironolactone [Aldactone] 25 mg PO DAILY 30 Days #30 tab 01/15/18 Allergies Allergy/AdvReac Type Severity Reaction Status Date / Time No Known Allergies Allergy Verified 01/12/18 10:19 Review of Systems ROS: all other systems reviewed are negative Constitutional Denies fever(s) Eyes Denies blurry vision ENT Denies nasal congestion Cardiovascular Reports chest pain Respiratory Denies cough Gastrointestinal Reports abdominal pain, Reports nausea and Reports vomiting Genitourinary Denies dysuria Musculoskeletal Denies back pain Neurologic Denies confusion Psychiatric Denies confusion PMFSH History History Provided By: Patient Medical History Medical History HTN (hypertension) (Acute) Pancreatitis (Acute) Surgical History Surgical History History of orthopedic surgery (Acute) Family History Family History Father Diabetes Mother Diabetes Social History Social History Substance History: Active Abuse Second Hand Smoke Exposure: No Smoking Status: Current every day smoker Tobacco Type: Cigarettes How Often Do You Have a Drink Containing Alcohol: Monthly or less Recent Travel in [facility] within the Last 8 Weeks: No Recent Out of Country Travel within the Last 8 Weeks: No Immunization History Tetanus Immunization: <5 Years Hx Influenza Vaccine This Season: No Exam Const Other: Appears uncomfortable [facility] Head: normocephalic and atraumatic Face and sinus: normal facial exam Eyes General: appearance normal, both eyes and all related structures Pupils: PERRL Chest Chest: normal inspection of the chest Resp Effort & Inspection: normal respiratory effort Auscultation: no rhonchi and no wheezes Cardio Rate: regular rate Rhythm: regular rhythm Other: Profoundly hypertensive (220s/110s) GI Other: Soft, non-distended, moderate epigastric tenderness, no guarding or rebound Skin General: no rashes or lesions noted Neuro General: alert, awake, oriented x3 and no focal motor deficits Psych Affect: normal affect Course Initial Documented Vital Signs Temperature 98.2 F 02/10/18 17:02 Respiratory Rate 22 02/10/18 17:02 Blood Pressure 227/134 H 02/10/18 17:02 Pulse Oximetry 100 02/10/18 17:02 Last Documented Vital Signs Temperature 98.2 F 02/10/18 17:02 Pulse Rate 84 02/10/18 21:49 Respiratory Rate 18 02/10/18 21:49 Blood Pressure 196/119 H 02/10/18 21:49 Pulse Oximetry 99 02/10/18 21:49 Medical Decision Making [facility] Narrative Medical decision making narrative: Assessment: 42yF presenting with chest/ abdominal pain, N/V Plan: EKG and monitor BP control Labs Antiemetrics, IV fluids CTA aorta to r/o dissection (patient had a negative study 1 month ago but again has profound HTN and midline chest/ abd pain) Addendum: Patient's workup shows no acute abnormalities, CTA negative, but BP remains 230/120 despite multiple doses of IV labetalol. She will need to be started on cardizem gtt for BP control and requires ICU level of care. I informed the patient of these results and plan; she understands and agrees. Case discussed with Dr. Mccloud. Differential Diagnosis Differential Diagnosis: Differential diagnosis includes, but is not limited to: hypertensive urgency/ emergency, ACS, pancreatitis, gastritis, SBO, colitis, diverticulitis Lab Data Result diagrams: 02/10/18 19:56 02/10/18 19:56 Lab Results 02/10/18 02/10/18 02/10/18 Range/Units 19:56 19:56 19:56 WBC 16.5 H (4.0-11.0) th/mm3 RBC 5.67 H (4.00-5.30) mil/mm3 Hgb 16.0 H (11.6-15.3) gm/dL Hct 49.0 H (35.0-46.0) % MCV 86.5 (80.0-100.0) fL MCH 28.3 (27.0-34.0) pg MCHC 32.7 (32.0-36.0) % RDW 15.1 (11.6-17.2) % Plt Count 247 (150-450) th/mm3 MPV 8.9 (7.0-11.0) fL Neut % (Auto) 91.4 H (16.0-70.0) % Lymph % (Auto) 5.3 L (9.0-44.0) % [place] % (Auto) 2.9 (0.0-8.0) % Eos % (Auto) 0.0 (0.0-4.0) % Baso % (Auto) 0.4 (0.0-2.0) % Neut # (Auto) 15.1 H (1.8-7.7) th/mm3 Lymph # (Auto) 0.9 L (1.0-4.8) th/mm3 [place] # (Auto) 0.5 (0.0-0.9) th/mm3 Eos # (Auto) 0.0 (0.0-0.4) th/mm3 Baso # (Auto) 0.1 (0.0-0.2) th/mm3 WBC Differential . Differential Comment Auto diff final PT 10.7 (9.8-11.6) sec INR 1.1 Ratio Sodium 137 (136-145) meq/L Potassium 3.3 L (3.5-5.1) meq/L Chloride 101 (98-107) meq/L Carbon Dioxide 24.1 (21.0-32.0) meq/L Anion Gap 12 (5-15) meq/L BUN 8 (7-18) mg/dL Creatinine 0.84 (0.50-1.00) mg/dL Estimated GFR 89 (>89) mL/min Random Glucose 132 H (74-106) mg/dL Calcium 9.9 (8.5-10.1) mg/dL Total Bilirubin 0.6 (0.2-1.0) mg/dL AST 21 (15-37) U/L ALT 24 (10-53) U/L Alkaline Phosphatase 164 H (45-117) U/L Troponin I Less than 0.02 L (0.02-0.05) ng/mL Total Protein 9.5 H (6.4-8.2) g/dL Albumin 4.3 (3.4-5.0) g/dL Lipase (73-393) U/L Urine Color (Yellw/Straw) Urine Clarity (Clear) Urine pH (5.0-8.5) Ur Specific [place] (1.002-1.035) Urine Protein (Neg-Trace) mg/dL Urine Glucose (UA) (Negative) mg/dL Urine Ketones (Negative) mg/dL Urine Occult Blood (Negative) Urine Nitrate (Negative) Urine Bilirubin (Negative) Urine Urobilinogen (Less than 2) mg/dL Ur Leukocyte Esterase (Negative) Urine RBC (0-3) /hpf Urine WBC (0-5) /hpf Ur Squamous Epith Cells (0-5) /hpf Urine Mucus (Occasional) /lpf Micro UA Comment Urine Culture Comments 02/10/18 02/10/18 Range/Units 19:56 20:00 WBC (4.0-11.0) th/mm3 RBC (4.00-5.30) mil/mm3 Hgb (11.6-15.3) gm/dL Hct (35.0-46.0) % MCV (80.0-100.0) fL MCH (27.0-34.0) pg MCHC (32.0-36.0) % RDW (11.6-17.2) % Plt Count (150-450) th/mm3 MPV (7.0-11.0) fL Neut % (Auto) (16.0-70.0) % Lymph % (Auto) (9.0-44.0) % [place] % (Auto) (0.0-8.0) % Eos % (Auto) (0.0-4.0) % Baso % (Auto) (0.0-2.0) % Neut # (Auto) (1.8-7.7) th/mm3 Lymph # (Auto) (1.0-4.8) th/mm3 [place] # (Auto) (0.0-0.9) th/mm3 Eos # (Auto) (0.0-0.4) th/mm3 Baso # (Auto) (0.0-0.2) th/mm3 WBC Differential Differential Comment PT (9.8-11.6) sec INR Ratio Sodium (136-145) meq/L Potassium (3.5-5.1) meq/L Chloride (98-107) meq/L Carbon Dioxide (21.0-32.0) meq/L Anion Gap (5-15) meq/L BUN (7-18) mg/dL Creatinine (0.50-1.00) mg/dL Estimated GFR (>89) mL/min Random Glucose (74-106) mg/dL Calcium (8.5-10.1) mg/dL Total Bilirubin (0.2-1.0) mg/dL AST (15-37) U/L ALT (10-53) U/L Alkaline Phosphatase (45-117) U/L Troponin I (0.02-0.05) ng/mL Total Protein (6.4-8.2) g/dL Albumin (3.4-5.0) g/dL Lipase 720 H (73-393) U/L Urine Color Straw (Yellw/Straw) Urine Clarity Clear (Clear) Urine pH 7.0 (5.0-8.5) Ur Specific [place] 1.010 (1.002-1.035) Urine Protein 30 H (Neg-Trace) mg/dL Urine Glucose (UA) 50 (Negative) mg/dL Urine Ketones 20 (Negative) mg/dL Urine Occult Blood Moderate H (Negative) Urine Nitrate Negative (Negative) Urine Bilirubin Negative (Negative) Urine Urobilinogen Less than 2 (Less than 2) mg/dL Ur Leukocyte Esterase Negative (Negative) Urine RBC 12 H (0-3) /hpf Urine WBC Less than 1 (0-5) /hpf Ur Squamous Epith Cells <1 (0-5) /hpf Urine Mucus Few H (Occasional) /lpf Micro UA Comment Culture not ind Urine Culture Comments Culture not ind Imaging Data Radiologist's impression: Chest X-Ray 02/10/18 19:31 CONCLUSION: No acute cardiopulmonary disease. Thoracic Aorta CT 02/10/18 19:33 CONCLUSION: 1. Aorta remains intact with no evidence of an aneurysm or dissection. ECG Data Attestation: I personally reviewed and interpreted this ECG as follows: Interpretation: Rate: 95 BPM Rhythm: Sinus [place]: Normal Intervals: Normal intervals, no blocks, QTc 389 ms Q waves: None T waves: Upright, no inversions ST segments: No elevations or depressions Impression: Non-specific EKG, no changes as compared to EKG from 01/12/2018. Discharge Plan Physicians Team ED Provider: Geri Fisher Primary Care Provider: Jordan Lehman Rxs /Orders / Referrals /Forms Prescriptions: No Action spironolactone [Aldactone] 25 mg Tablet 25 mg PO DAILY 30 Days Qty: 30 RF: 0 amlodipine [Norvasc] 10 mg Tablet 10 mg PO DAILY 30 Days Qty: 30 RF: 0 lisinopril 40 mg Tablet 40 mg PO DAILY 30 Days RF: 0 Discharge Interventions Interventions: Vital Signs Last Done: 02/10/18 20:00 Status ED Status: With Doctor
[2018-02-10 20:32] LABS: Baso # (Auto) 0.1 th/mm3 (0.0-0.2); Baso % (Auto) 0.4 % (0.0-2.0); Lymph # (Auto) 0.9 th/mm3 (1.0-4.8); Lymph % (Auto) 5.3 % (9.0-44.0); Mean Corpuscular HGB Conc 32.7 % (32.0-36.0); Mean Corpuscular Hemoglobin 28.3 pg (27.0-34.0); Mean Corpuscular Volume 86.5 fL (80.0-100.0); Mean Platelet Volume 8.9 fL (7.0-11.0); Mono # (Auto) 0.5 th/mm3 (0.0-0.9); Mono % (Auto) 2.9 % (0.0-8.0); Neut # (Auto) 15.1 th/mm3 (1.8-7.7); Neut % (Auto) 91.4 % (16.0-70.0); Platelet Count 247 th/mm3 (150-450); Red Blood Count 5.67 mil/mm3 (4.00-5.30); Red Cell Distribution Width 15.1 % (11.6-17.2); White Blood Count 16.5 th/mm3 (4.0-11.0)
[2018-02-10 20:36] LABS: Bilirubin,Urine Negative (Negative); Clarity,Urine Clear (Clear); Color,Urine Straw (Yellw/Straw); Glucose,Urine (UA) 50 mg/dL (Negative); Leukocyte Esterase,Urine Negative (Negative); Mucus,Urine Few /lpf (Occasional); Nitrite,Urine Negative (Negative); Squamous Epithelial Cell,Urine <1 /hpf (0-5)
[2018-02-10 20:37] LABS: INR 1.1 Ratio; Prothrombin Time 10.7 sec (9.8-11.6)
[2018-02-10 20:47] LABS: Albumin 4.3 g/dL (3.4-5.0); Anion Gap 12 meq/L (5-15); Aspartate Aminotransferase 21 U/L (15-37); Blood Urea Nitrogen 8 mg/dL (7-18); Calcium 9.9 mg/dL (8.5-10.1); Carbon Dioxide 24.1 meq/L (21.0-32.0); Chloride 101 meq/L (98-107); Glomerular Filtration Rate 89 mL/min (>89); Glucose,Random 132 mg/dL (74-106); Potassium 3.3 meq/L (3.5-5.1); Sodium 137 meq/L (136-145)
[2018-02-10 20:48] LABS: Alanine Aminotransferase 24 U/L (10-53)
[2018-02-10 20:51] LABS: Alkaline Phosphatase 164 U/L (45-117); Total Protein 9.5 g/dL (6.4-8.2)
--- NOTE | 2018-02-10 21:52 | CT ---
EXAM DATE: 02/10/2018 9:46 PM EDT AGE/SEX: 42 years / Female INDICATIONS: Epigastric pain. CLINICAL DATA: This is the patient's initial encounter. Patient reports that signs and symptoms have been present for 1 day and indicates a pain score of 5/10. MEDICAL/SURGICAL HISTORY: Hypertension. Pancreatitis. None. RADIATION DOSE: 9.97 CTDI (mGy) COMPARISON: [facility] [place] CTA THORACIC ABDOMINAL AORTA W 3D RECON, 06/25/2016. . TECHNIQUE: Volumetric scanning was performed using a multi-row detector CT scanner during bolus infu romain of 100 ml Omnipaque 350 (iohexol) nonionic water-soluble contrast as a single exam dose. The d nicki was post processed with a variety of visualization algorithms including full volume maximum inten sity projection, multi-planar sliding thin slab reformation, curved planar reformation, and surface r endering techniques. Using automated exposure control and adjustment of the mA and/or kV according t o patient size, radiation dose was kept as low as reasonably achievable to obtain optimal diagnostic quality images. DICOM format image data is available electronically for review and comparison. FINDINGS: Lungs: There is no consolidation or pneumothorax. No concerning pulmonary nodule is visualized. No pleural fluid is present. Mediastinum: No abnormally enlarged lymph nodes by CT criteria. No axillary or hilar abnormalities a re identified. Abdomen: The liver and spleen are free of focal defects. The gallbladder and pancreas demonstrate no abnormality. The adrenal glands are normal. The kidneys demonstrate no evidence of solid renal mass or hydronephrosis. No free fluid or abdominal masses are identified. No para-aortic adenopathy is see n. Pelvis: No evidence of free fluid or pelvic mass. No abnormally enlarged inguinal or retroperitoneal lymph nodes are present. The bladder is unremarkable. Thoracic Aorta: The thoracic aortic root is normal with normal branching of the great vessels. Ther e is no evidence of aneurysm or dissection. Abdominal Aorta: The aorta is normal in caliber without aneurysm or dissection. The renal arteries are patent bilaterally. The proximal celiac and superior mesenteric arteries are patent and normal i n diameter. Pelvic Vessels: The internal iliac and external iliac vessels are patent without aneurysm or stenosi s. CONCLUSION: 1. Aorta remains intact with no evidence of an aneurysm or dissection. Electronically signed by: Wilfrid Mccullough MD 02/10/2018 9:50 PM EDT
[2018-02-10] MEDS ORDERED: Bisacodyl 10 MG Supp RECTAL PRN (22:28)
[2018-02-10] MEDS ORDERED: Acetaminophen 325 MG Tablet PO PRN (22:28)
[2018-02-10] MEDS ORDERED: Labetalol HCl Inj 100 MG/20 ML Vial IV.PUSH PRN (22:30)
[2018-02-10] MEDS ORDERED: Magnesium Sulfate Inj 2 GM in Sodium Chlor 0.9% Inj 96 ML IV.SIG PRN (22:32)
[2018-02-10] MEDS ORDERED: Potassium Chlor 20 mEq Premix 20 MEQ/100 ML PIGGYBACK IV.SIG PRN ×2 (22:32)
[2018-02-10] MEDS ORDERED: Potassium Phosphate Inj 30 MMOL in Sodium Chlor 0.9% Inj 250 ML IV.SIG PRN (22:32)
[2018-02-10] MEDS ORDERED: Sodium Phosphate Inj 30 MMOL in Sodium Chlor 0.9% Inj 250 ML IV.SIG PRN (22:32)
[2018-02-10] MEDS ORDERED: Magnesium Oxide 400 MG Tablet PO PRN (22:32)
[2018-02-10] MEDS ORDERED: Potassium Chlor 40 mEq Premix 40 MEQ/100 ML PIGGYBACK IV.SIG PRN ×2 (22:32)
[2018-02-10] MEDS ORDERED: Potassium Phosphate 500 MG Soluble Tablet PO PRN ×2 (22:32)
[2018-02-10] MEDS ORDERED: Magnesium Sulfate Inj 4 GM in Sodium Chlor 0.9% Inj 92 ML IV.SIG PRN (22:32)
[2018-02-10] MEDS ORDERED: Dextrose 50% in Water 50 ML Vial IV.PUSH PRN (22:32)
[2018-02-10] MEDS ORDERED: Potassium Chloride 25 MEQ Effervescent Tablet PO PRN (22:32)
--- NOTE | 2018-02-10 22:35 | P.HPCC ---
History of Present Illness Service: [facility] Primary Care Physician: Jordan Lehman DO Chief Complaint: Nausea/vomiting History of Present Illness: This is a 42-year-old AA female. Date of admission 02/11/2008. Past medical includes hypertension and pancreatitis. Patient has a history of a positive tox positive for THC. Patient presents to [facility] with history of nausea /vomiting since early this a.m. describes as sharp epigastric pain. Patient did have an elevated lipase, leukocytosis and elevated hemoglobin likely secondary to dehydration/acute phase reactant. Patient received 20 mg IV labetalol without results/control her hypertension was started on a nicardipine drip. Patient is a negative CT angiogram of the aorta to rule out dissection. Troponin was 0.02. Please note last month patient admitted echocardiogram revealed EF 6065%. Slight LVH. Had a negative Lexiscan. Also note, patient elevated total metanephrines of 1751 and normetanephrines at greater than 1500. Adrenal glands looked within normal limits on CT angiogram of the aorta. Inpatient Certification: 4 Estimated Total Length of Stay (Days): 4 Plans for Post Hospital Care: Home Review of Systems Constitutional: Denies anorexia, Denies body ache(s), Denies chills, Denies daytime sleepiness Eyes: Denies blind spots, Denies blurry vision Ears, Nose, Mouth, and Throat: Reports sore throat, Denies abnormal hearing, Denies difficulty swallowing, Denies facial pain Cardiovascular: Reports chest pain, Denies chest pain at rest, Denies chest pain with activity, Denies excessive sweating, Denies rapid, pounding, or irregular heartbeat Respiratory: Denies change in phlegm color, Denies shortness of breath with activity Gastrointestinal: Reports abdominal pain, Reports bloating, Denies difficulty swallowing, Denies loose stools Genitourinary: Denies abnormal vaginal bleeding Musculoskeletal: Denies abnormal walking, Denies back pain Skin/Breast: Denies bleeding lesions Neurologic: Denies abnormal hearing Psychiatric: Denies abnormal sleep pattern Endocrine: Reports excessive sweating, Denies cold intolerance, Denies flushing Hematologic/Lymphatic: Denies easy bleeding Allergic/Immunologic: Reports GI upset with certain foods PMFSH - History History Provided By: Patient - Medical History Medical History: Medical History (Last Reviewed 02/10/18 @ 22:54 by Joaquin Mccloud MD) HTN (hypertension) Pancreatitis - Surgical History Surgical History: Surgical History (Last Reviewed 02/10/18 @ 22:54 by Joaquin Mccloud MD) History of orthopedic surgery - Family History Family History: Family History (Last Reviewed 02/10/18 @ 22:54 by Joaquin Mccloud MD) Father Diabetes Mother Diabetes - Tobacco History Second Hand Smoke Exposure: No Tobacco Use In Past 30 Days: Yes Smoking Status: Current every day smoker Tobacco Type: Cigarettes - Alcohol History How Often Do You Have a Drink Containing Alcohol: Monthly or less - Substance Use History Substance History: Active Abuse - Travel History Recent Travel in the [place] Within the Last 8 Weeks: No Recent Travel Out of the Country Within the Last 8 Weeks: No - Immunization History Tetanus Immunization: <5 Years Hx Influenza Vaccine This Season: No Medications and Allergies Active Medications: Active Medications Acetaminophen (Tylenol) 650 mg PO Q6H PRN PRN Reason: PAIN 1-10 AND/OR FEVER >101F Hydrocodone Bitart/Acetaminophen (Alexander 5/325) 1 tab PO Q4H PRN PRN Reason: PAIN SCALE 1 TO 5 Al Hydroxide/Mg Hydroxide (Milk Of Pamela Philippe) 30 ml PO Q12H PRN PRN Reason: Mild Constipation Albuterol (Albuterol Neb (Huang)) 2.5 mg NEB Q2HR NEB PRN PRN Reason: SHORTNESS OF BREATH/WHEEZING Amlodipine Besylate (Norvasc) 10 mg PO DAILY HUANG Bisacodyl (Dulcolax Supp) 10 mg RECTAL DAILY PRN PRN Reason: SEVERE CONSITIPATION Chlorhexidine Gluconate (Chlorhexidine 2% Cloth) 3 pack TOPICAL DAILY@0400 HUANG Stop: 02/16/18 03:59 Chlorhexidine Gluconate (Chlorhexidine 2% Cloth) 3 pack TOPICAL DAILY@0400 PRN PRN Reason: Extra cloth needed Stop: 02/16/18 03:59 Famotidine (Pepcid) 20 mg PO HS HUANG Nicardipine HCl 25 mg/ Sodium (Chloride) 250 mls @ 50 mls/hr IV.CONT TITRATE PRN; Protocol PRN Reason: Per Protocol Sodium Chloride (Ns Inj) 1,000 mls @ 84 mls/hr IV.CONT .[id number] HUANG Labetalol HCl (Trandate Inj) 10 mg IV.PUSH Q1H PRN PRN Reason: Sbp>170, Dbp>90, Hr>65 Lactulose (Lactulose Liq) 30 ml PO DAILY PRN PRN Reason: SEVERE CONSITIPATION Morphine Sulfate (Morphine Inj) 2 mg IV.PUSH Q2H PRN PRN Reason: PAIN SCALE 6 TO 10 Nitroglycerin (Nitro-Bid 2% Oint) 1 inch TOPICAL Q6HR PRN PRN Reason: SBP>160, DBP>90 Non-Formulary Medication (Lisinopril [Lisinopril]) 40 mg PO DAILY COUNT INCLUDES THE [facility] Ondansetron HCl (Zofran Inj) 4 mg IV.PUSH Q6H PRN PRN Reason: NAUSEA OR VOMITING Senna/Docusate Sodium (Tahmina-Colace) 1 tab PO BID COUNT INCLUDES THE [facility] Sennosides (Senokot) 17.2 mg PO Q12H PRN PRN Reason: Moderate Constipation Sodium Chloride (Ns Flush) 2 ml IV.FLUSH UNSCH PRN PRN Reason: FLUSH AFTER USING IV ACCESS Sodium Chloride (Ns Flush) 2 ml IV.FLUSH BID HUANG Sodium Chloride (Ns Flush) 2 ml IV.FLUSH PRN PRN PRN Reason: FLUSH AFTER USING IV ACCESS Spironolactone (Aldactone) 25 mg PO DAILY COUNT INCLUDES THE [facility] Allergies Allergy/AdvReac Type Severity Reaction Status Date / Time No Known Allergies Allergy Verified 01/12/18 10:19 Results - Labs CBC & Chem 7: 02/10/18 19:56 02/10/18 19:56 Labs: Short CBC 02/10/18 Range/Units 19:56 WBC 16.5 H (4.0-11.0) th/mm3 Hgb 16.0 H (11.6-15.3) gm/dL Hct 49.0 H (35.0-46.0) % Plt Count 247 (150-450) th/mm3 BMP 02/10/18 19:56 Sodium 137 Potassium 3.3 L Chloride 101 Carbon Dioxide 24.1 BUN 8 Creatinine 0.84 Calcium 9.9 Cardiac Enzymes 02/10/18 Range/Units 19:56 Troponin I Less than 0.02 L (0.02-0.05) ng/mL Liver Function 02/10/18 Range/Units 19:56 Total Bilirubin 0.6 (0.2-1.0) mg/dL AST 21 (15-37) U/L ALT 24 (10-53) U/L Alkaline Phosphatase 164 H (45-117) U/L Albumin 4.3 (3.4-5.0) g/dL Urine 02/10/18 Range/Units 20:00 Urine Color Straw (Yellw/Straw) Urine Clarity Clear (Clear) Urine pH 7.0 (5.0-8.5) Ur Specific [place] 1.010 (1.002-1.035) Urine Protein 30 H (Neg-Trace) mg/dL Urine Glucose (UA) 50 (Negative) mg/dL - Imaging Impressions Chest X-Ray 02/10/18 19:31 CONCLUSION: No acute cardiopulmonary disease. Thoracic Aorta CT 02/10/18 19:33 CONCLUSION: 1. Aorta remains intact with no evidence of an aneurysm or dissection. Exam Vital signs: Vital Signs 02/10/18 17:02 02/10/18 19:28 02/10/18 20:00 Temperature 98.2 F Pulse Rate 98 H 88 Respiratory Rate 22 20 18 Blood Pressure 227/134 H 219/117 H 236/116 H Blood Pressure [Left Arm] Blood Pressure [Right Arm] Pulse Oximetry 100 100 99 02/10/18 21:49 Temperature Pulse Rate 84 Respiratory Rate 18 Blood Pressure Blood Pressure [Left Arm] 196/119 H Blood Pressure [Right Arm] 198/117 H Pulse Oximetry 99 Intake & Output 02/10/18 02/10/18 02/11/18 06:59 18:59 06:59 Weight 127.913 kg - Constitutional no acute distress - Routine HEENT Exam Head: Present: normocephalic, atraumatic Eye: Present: EOMI, PERRL ENT: Present: mucous membranes moist - Routine Neck Exam Present: supple. Absent: JVD, carotid bruit - Routine Chest/Breast/Axilla Exam Chest wall: Absent: tenderness Breast: Absent: tenderness Axillae: Absent: lymphadenopathy - Routine Respiratory Exam Present: CTA bilaterally. Absent: rales, respiratory distress, wheezes, crackles - Routine Cardiovascular Exam Present: RRR, S1, S2. Absent: murmur, S4 - Routine Abdominal Exam Present: soft, normoactive bowel sounds. Absent: guarding - Routine Extremities Exam Absent: cyanosis, clubbing, edema - Routine Skin Exam Present: intact - Routine Neurological Exam Present: alert, oriented X3, CN II-XII intact. Absent: sensory deficit, motor deficit Septic Shock Reassessment Septic shock perfusion: reassessment completed Caprini VTE Risk Assessment Caprini VTE Risk Assessment: No/Low Risk (score <= 1) Caprini Risk Assessment Model: Point Value = 1 Point Value = 2 Point Value = 3 Point Value = 5 Age 41-60 Minor surgery BMI > 25 kg/m2 Swollen legs Varicose veins or History of unexplained or recurrent spontaneous Oral contraceptives or hormone replacement Sepsis (< 1 month) Serious lung disease, including pneumonia (< 1 month) Abnormal pulmonary function Acute myocardial infarction Congestive heart failure (< 1 month) History of inflammatory bowel disease Medical patient at bed rest Age 61-74 Arthroscopic surgery Major open surgery (> 45 min) Laparoscopic surgery (> 45 min) Malignancy Confined to bed (> 72 hours) Immobilizing plaster cast Central venous access Age >= 75 History of VTE Family history of VTE Factor V Leiden Prothrombin [id number] Lupus anticoagulant Anticardiolipin antibodies Elevated serum homocysteine Heparin-induced thrombocytopenia Other congenital or acquired thrombophilia Stroke (< 1 month) Elective arthroplasty Hip, pelvis, or leg fracture Acute spinal cord injury (< 1 month) Prophylaxis Regimen: Total Risk Factor Score Risk Level Prophylaxis Regimen 0-1 Low Early ambulation 2 Moderate Order ONE of the following: *Sequential Compression Device (SCD) *Heparin 5000 units SQ BID 3-4 Higher Order ONE of the following medications: *Heparin 5000 units SQ TID *Enoxaparin/Lovenox 40 mg SQ daily (WT < 150 kg, CrCl > 30 mL/min) *Enoxaparin/Lovenox 30 mg SQ daily (WT < 150 kg, CrCl > 10-29 mL/min) *Enoxaparin/Lovenox 30 mg SQ BID (WT < 150 kg, CrCl > 30 mL/min) AND/OR *Sequential Compression Device (SCD) 5 or more Highest Order ONE of the following medications: *Heparin 5000 units SQ TID (Preferred with Epidurals) *Enoxaparin/Lovenox 40 mg SQ daily (WT < 150 kg, CrCl > 30 mL/min) *Enoxaparin/Lovenox 30 mg SQ daily (WT < 150 kg, CrCl > 10-29 mL/min) *Enoxaparin/Lovenox 30 mg SQ BID (WT < 150 kg, CrCl > 30 mL/min) AND *Sequential Compression Device (SCD) Assessment and Plan - Assessment and Plan Plan: Neuro/Psych: History of THC use Acetaminophen 650 mg p.o. every 6 hours as needed fever Hydrocodone/acetaminophen 5/325 1 tablet every 4 hours as needed pain 1 through 5 Morphine sulfate 2 mg IV every 8 as needed pain 6-10 CV: Hypertensive emergency Resume home medications of amlodipine 10 mg daily, lisinopril 40 mg daily and prolactin 20 mg daily During last admission occurring revealed EF of 60-65%. Mild LVH. PA P 22 mmHg. Negative Lexiscan. Currently on nicardipine drip to keep blood pressure systolic less than 180 CT angiogram the aorta revealed no dissection Please note patient had elevated total metanephrines of 1751 and normetanephrine 1514 last admission Resp: Nasal cannula to maintain saturations greater than equal 92% Incentive spirometry while awake GI: Nausea/vomiting Elevated lipase Likely secondary to hypertensive emergency. CT imaging of the aorta revealed no signs of pancreatitis. Check amylase and lipase again in the a.m. No hx of gallbladder dz, new medications, herbal supplements, autoimmune disease or family hx of pancreatitis : Gore catheter if indicated Endo: Sliding scale insulin Accu-Cheks to maintain euglycemia/aspart every before meals and at bedtime Check hemoglobin A1c and TSH Check cortisol level Renal: Creatinine currently within normal limits Monitor urine output Accurate I's and O's Heme: Leukocytosis Polycythemia CBC within normal limits Monitor CBC daily. Follow trends. No indication for transfusion of blood products at this time. ID: Monitor for signs and since hematology infection MSK: Elevated BMI Weight loss encouraged PT evaluate and treat FEN: Hypokalemia Replace electrolytes per ICU electrolyte protocol Access -Utilize peripheral IV. Central line if indicated Prophylaxis -GI -femoral to pain -DVT -SCD/holding pharmacological prophylaxis pending blood pressure control Critical care time 35 minutes Code Status: Full code Discussed Condition With: Dr. Fisher, ED physician. Patient. Care plan discussed and all questions answered.
[2018-02-10] MEDS: niCARdipine Inj 25 MG in Sodium Chlor 0.9% Inj 240 ML IV.CONT PRN (22:41)
[2018-02-10] MEDS: Sod Chloride 0.9% Inj 1,000 ML IV.CONT SCH (23:29)
[2018-02-11] MEDS ORDERED: Chlorhexidine Gluconate 2% 1 Pack (2 Cloths) TOPICAL PRN (04:00)
[2018-02-11] MEDS: Morphine Sulfate Inj 2 MG/ML Vial IV.PUSH PRN ×2 (05:27→20:32)
[2018-02-11] MEDS: niCARdipine Inj 25 MG in Sodium Chlor 0.9% Inj 240 ML IV.CONT PRN (05:43)
--- NOTE | 2018-02-11 07:08 | P.PNCC ---
Subjective Subjective Remarks/Hospital Course: This is a 42-year-old AA female. Date of admission 02/11/2008. Past medical includes hypertension and pancreatitis. Patient has a history of a positive tox positive for THC. Patient presents to [facility] with history of nausea /vomiting since early this a.m. describes as sharp epigastric pain. Patient did have an elevated lipase, leukocytosis and elevated hemoglobin likely secondary to dehydration/acute phase reactant. Patient received 20 mg IV labetalol without results/control her hypertension was started on a nicardipine drip. Patient is a negative CT angiogram of the aorta to rule out dissection. Troponin was 0.02. Please note last month patient admitted echocardiogram revealed EF 6065%. Slight LVH. Had a negative Lexiscan. Also note, patient elevated total metanephrines of 1751 and normetanephrines at greater than 1500. Adrenal glands looked within normal limits on CT angiogram of the aorta. 02/11 Patient is awake and alert lying in bed in NAD. On Cardene 6mg/hr. Afebrile. Objective Vital Signs / I&O: Vital Signs 02/10/18 17:02 02/10/18 19:28 02/10/18 20:00 Temperature 98.2 F Pulse Rate 98 H 88 Respiratory Rate 22 20 18 Blood Pressure 227/134 H 219/117 H 236/116 H Blood Pressure [Left Arm] Blood Pressure [Right Arm] Pulse Oximetry 100 100 99 02/10/18 21:49 02/10/18 23:00 02/11/18 00:35 Temperature Pulse Rate 84 82 Respiratory Rate 18 16 Blood Pressure 144/73 H Blood Pressure [Left Arm] 196/119 H Blood Pressure [Right Arm] 198/117 H Pulse Oximetry 99 99 99 02/11/18 01:20 02/11/18 02:11 02/11/18 04:06 Temperature Pulse Rate 85 92 H Respiratory Rate 18 18 Blood Pressure 147/89 H 150/79 H Blood Pressure [Left Arm] Blood Pressure [Right Arm] Pulse Oximetry 99 100 Intake & Output 02/10/18 02/10/18 02/11/18 06:59 18:59 06:59 Intake Total 250 / 250 Balance 250 / 250 Weight 127.913 kg 124 kg Intake: IV 250 / 250 Cardene Inj 25 MG In NS Inj 240 250 / 250 ML @ 5 MG/HR 50 mls/hr IV.CONT TITRATE PRN Rx#:[id number] Other: # Voids 2 Weight On Admission 124 kg Result Diagrams: 02/11/18 08:45 02/11/18 08:45 Other Results: Laboratory Results - last 12 hr 02/10/18 02/10/18 02/10/18 19:56 19:56 19:56 WBC 16.5 H RBC 5.67 H Hgb 16.0 H Hct 49.0 H MCV 86.5 MCH 28.3 MCHC 32.7 RDW 15.1 Plt Count 247 MPV 8.9 Neut % (Auto) 91.4 H Lymph % (Auto) 5.3 L [place] % (Auto) 2.9 Eos % (Auto) 0.0 Baso % (Auto) 0.4 Neut # (Auto) 15.1 H Lymph # (Auto) 0.9 L [place] # (Auto) 0.5 Eos # (Auto) 0.0 Baso # (Auto) 0.1 WBC Differential . Differential Comment Auto diff final PT 10.7 INR 1.1 Sodium 137 Potassium 3.3 L Chloride 101 Carbon Dioxide 24.1 Anion Gap 12 BUN 8 Creatinine 0.84 Estimated GFR 89 Random Glucose 132 H Calcium 9.9 Total Bilirubin 0.6 AST 21 ALT 24 Alkaline Phosphatase 164 H Total Creatine Kinase Troponin I Less than 0.02 L Total Protein 9.5 H Albumin 4.3 Lipase TSH Beta HCG, Qual Urine Color Urine Clarity Urine pH Ur Specific Bromide Urine Protein Urine Glucose (UA) Urine Ketones Urine Occult Blood Urine Nitrate Urine Bilirubin Urine Urobilinogen Ur Leukocyte Esterase Urine RBC Urine WBC Ur Squamous Epith Cells Urine Mucus Micro UA Comment Urine Culture Comments 02/10/18 02/10/18 02/10/18 19:56 19:56 20:00 WBC RBC Hgb Hct MCV MCH MCHC RDW Plt Count MPV Neut % (Auto) Lymph % (Auto) [place] % (Auto) Eos % (Auto) Baso % (Auto) Neut # (Auto) Lymph # (Auto) [place] # (Auto) Eos # (Auto) Baso # (Auto) WBC Differential Differential Comment PT INR Sodium Potassium Chloride Carbon Dioxide Anion Gap BUN Creatinine Estimated GFR Random Glucose Calcium Total Bilirubin AST ALT Alkaline Phosphatase Total Creatine Kinase Troponin I Total Protein Albumin Lipase 720 H TSH 0.703 Beta HCG, Qual Urine Color Straw Urine Clarity Clear Urine pH 7.0 Ur Specific Bromide 1.010 Urine Protein 30 H Urine Glucose (UA) 50 Urine Ketones 20 Urine Occult Blood Moderate H Urine Nitrate Negative Urine Bilirubin Negative Urine Urobilinogen Less than 2 Ur Leukocyte Esterase Negative Urine RBC 12 H Urine WBC Less than 1 Ur Squamous Epith Cells <1 Urine Mucus Few H Micro UA Comment Culture not ind Urine Culture Comments Culture not ind 02/10/18 02/10/18 02/11/18 23:05 23:05 01:06 WBC RBC Hgb Hct MCV MCH MCHC RDW Plt Count MPV Neut % (Auto) Lymph % (Auto) [place] % (Auto) Eos % (Auto) Baso % (Auto) Neut # (Auto) Lymph # (Auto) [place] # (Auto) Eos # (Auto) Baso # (Auto) WBC Differential Differential Comment PT INR Sodium Potassium Chloride Carbon Dioxide Anion Gap BUN Creatinine Estimated GFR Random Glucose Calcium Total Bilirubin AST ALT Alkaline Phosphatase Total Creatine Kinase 127 Troponin I 0.03 Total Protein Albumin Lipase TSH Beta HCG, Qual Less than 1.0 Urine Color Urine Clarity Urine pH Ur Specific Bromide Urine Protein Urine Glucose (UA) Urine Ketones Urine Occult Blood Urine Nitrate Urine Bilirubin Urine Urobilinogen Ur Leukocyte Esterase Urine RBC Urine WBC Ur Squamous Epith Cells Urine Mucus Micro UA Comment Urine Culture Comments Imaging: Chest X-Ray 02/10/18 19:31 CONCLUSION: No acute cardiopulmonary disease. Thoracic Aorta CT 02/10/18 19:33 CONCLUSION: 1. Aorta remains intact with no evidence of an aneurysm or dissection. Objective Remarks: GENERAL: Patient is 42yo lying in bed in NAD SKIN: Warm and dry. HEAD: Normocephalic. EYES: No scleral icterus. No injection or drainage. NECK: Supple, trachea midline. No JVD or lymphadenopathy. CARDIOVASCULAR: Regular rate and rhythm without murmurs, gallops, or rubs. RESPIRATORY: Breath sounds equal bilaterally. No accessory muscle use. GASTROINTESTINAL: Abdomen soft, non-tender, nondistended. MUSCULOSKELETAL: No cyanosis, or edema. Neuro: Awake and alert Assessment and Plan - Assessment and Plan Plan: Neuro/Psych: History of THC use Acetaminophen 650 mg p.o. every 6 hours as needed fever Hydrocodone/acetaminophen 5/325 1 tablet every 4 hours as needed pain 1 through 5 Morphine sulfate 2 mg IV every 8 as needed pain 6-10 CV: Hypertensive emergency Continue amlodipine 10 mg daily, lisinopril 40 mg daily and Aldactone 25mg daily Wean off Cardene drip. During last admission occurring revealed EF of 60-65%. Mild LVH. PA P [address] angiogram the aorta revealed no dissection Please note patient had elevated total metanephrines of 1751 and normetanephrine 1514 last admission Resp: Nasal cannula to maintain saturations greater than equal 92% Incentive spirometry while awake CXR: No acute disease GI: Nausea/vomiting Elevated lipase Likely secondary to hypertensive emergency. CT imaging of the aorta revealed no signs of pancreatitis. Follow up on Lipase level No hx of gallbladder dz, new medications, herbal supplements, autoimmune disease or family hx of pancreatitis : Gore catheter if indicated Endo: Sliding scale insulin Accu-Cheks to maintain euglycemia/aspart every before meals and at bedtime TSH:0.70 Renal: Monitor renal function, I/O's, electrolytes replacement per protocol On NS@84ml/hr Heme: Leukocytosis Polycythemia CBC within normal limits Monitor CBC daily. Follow trends. ID: Monitor for signs of infection(Fever, WBC). Panculture if spikes a fever MSK: Elevated BMI Weight loss encouraged PT evaluate and treat Access -Utilize peripheral IV. Prophylaxis -GI -femoral to pain -DVT -SCD Level 2
[2018-02-11] MEDS: Chlorhexidine Gluconate 2% 1 Pack (2 Cloths) TOPICAL SCH (08:49)
[2018-02-11] MEDS: Lisinopril 20 MG Tablet PO SCH (08:52)
[2018-02-11] MEDS: Spironolactone 25 MG Tablet PO SCH (08:52)
[2018-02-11] MEDS: Senna/Docusate Sodium 8.6/50 MG Tablet PO SCH ×2 (08:52→20:31)
[2018-02-11] MEDS: amLODIPine 10 MG Tablet PO SCH (08:52)
[2018-02-11 09:18] LABS: Baso # (Auto) 0.1 th/mm3 (0.0-0.2); Baso % (Auto) 0.4 % (0.0-2.0); Eos % (Auto) 0.1 % (0.0-4.0); Hematocrit 44.7 % (35.0-46.0); Hemoglobin 14.8 gm/dL (11.6-15.3); Lymph # (Auto) 1.9 th/mm3 (1.0-4.8); Lymph % (Auto) 10.7 % (9.0-44.0); Mean Corpuscular HGB Conc 33.1 % (32.0-36.0); Mean Corpuscular Hemoglobin 28.4 pg (27.0-34.0); Mean Corpuscular Volume 85.9 fL (80.0-100.0); Mean Platelet Volume 8.7 fL (7.0-11.0); Mono # (Auto) 1.1 th/mm3 (0.0-0.9); Mono % (Auto) 6.3 % (0.0-8.0); Neut # (Auto) 14.5 th/mm3 (1.8-7.7); Neut % (Auto) 82.5 % (16.0-70.0); Platelet Count 221 th/mm3 (150-450); Red Blood Count 5.21 mil/mm3 (4.00-5.30); Red Cell Distribution Width 15.2 % (11.6-17.2); White Blood Count 17.6 th/mm3 (4.0-11.0)
[2018-02-11 09:31] LABS: Activated Partial Thrombo Time 24.4 sec (24.3-30.1); INR 1.1 Ratio; Prothrombin Time 10.9 sec (9.8-11.6)
[2018-02-11 09:42] LABS: Albumin 3.9 g/dL (3.4-5.0); Anion Gap 11 meq/L (5-15); Aspartate Aminotransferase 15 U/L (15-37); Blood Urea Nitrogen 7 mg/dL (7-18); Carbon Dioxide 25.3 meq/L (21.0-32.0); Chloride 104 meq/L (98-107); Glomerular Filtration Rate Greater Than 89 mL/min (>89); Glucose,Random 100 mg/dL (74-106); Lipase 1107 U/L (73-393); Magnesium 1.7 mg/dL (1.5-2.5); Sodium 140 meq/L (136-145)
[2018-02-11 09:48] LABS: Amylase 133 U/L (25-115)
[2018-02-11 09:50] LABS: Alanine Aminotransferase 21 U/L (10-53); Alkaline Phosphatase 144 U/L (45-117); Calcium 8.9 mg/dL (8.5-10.1); Creatine Kinase 111 U/L (26-192); Phosphorus 2.9 mg/dL (2.5-4.9); Total Protein 8.5 g/dL (6.4-8.2)
[2018-02-11] MEDS: Sod Chloride 0.9% Inj 1,000 ML IV.CONT SCH ×2 (11:30→22:52)
[2018-02-11] MEDS ORDERED: Gadobutrol PF 15 MMOL/15 ML Vial (for RAD) IV.SIG ONE (14:19)
[2018-02-11] MEDS: Insulin NovoLOG Aspart Correctional Sugar Inj SQ SCH ×4 (15:29→20:31)
--- NOTE | 2018-02-11 15:55 | MR ---
EXAM DATE: 02/11/2018 2:31 PM EDT AGE/SEX: 42 years / Female INDICATIONS: Abdominal pain. Epigastric Pain. CLINICAL DATA: This is the patient's initial encounter. Patient reports that signs and symptoms have been present for 2 days and indicates a pain score of 6/10. MEDICAL/SURGICAL HISTORY: Hypertension. section. COMPARISON: C, CTA THOR ABD AORTA W CONTRAST W 3D, 02/10/2018. . TECHNIQUE: Multiplanar, multisequence images of the abdomen were obtained prior to and following adm inistration of 12 ml Gadavist (gadobutrol) contrast as a single exam dose with dynamic multiphase mic hnique. FINDINGS: Liver: The liver is homogeneous with signal intensity suggesting some degree of fatty infiltration. P arenchymal enhancement is normal with no focal abnormalities. There is no biliary ductal dilatation. Gallbladder: No gallstones seen. Spleen: The spleen is unremarkable. Pancreas: Peripancreatic edema and fluid tracking along the second and third portions of the duodenum . Adrenals: The adrenal glands appear normal. Kidneys: Both kidneys appear normal with symmetric nephrograms and no focal parenchymal abnormalities . There is no hydronephrosis on either side. Retroperitoneum: The aorta is unremarkable. There is no pathologic abdominal lymphadenopathy. Post Contrast: No abnormal areas of enhancement seen. CONCLUSION: 1. There is some peripancreatic fluid and edema which tracks along the second and third portions of the duodenum. I believe findings are most characteristic of an acute pancreatitis. Could also conside r duodenitis if pancreatic enzymes are not elevated. 2. Hepatic fatty infiltration. Electronically signed by: Yogesh Sarmiento MD 02/11/2018 3:54 PM EDT
[2018-02-11 17:13] LABS: Hemoglobin A1c 5.4 % (4.3-6.0)
[2018-02-11] MEDS ORDERED: Famotidine 20 MG Tablet PO SCH (21:00)
[2018-02-12 04:34] LABS: Baso % (Auto) 0.2 % (0.0-2.0); Eos # (Auto) 0.1 th/mm3 (0.0-0.4); Eos % (Auto) 0.6 % (0.0-4.0); Hematocrit 42.6 % (35.0-46.0); Hemoglobin 14.1 gm/dL (11.6-15.3); Lymph % (Auto) 25.9 % (9.0-44.0); Mean Corpuscular HGB Conc 33.1 % (32.0-36.0); Mean Corpuscular Hemoglobin 28.8 pg (27.0-34.0); Mean Corpuscular Volume 86.9 fL (80.0-100.0); Mean Platelet Volume 8.4 fL (7.0-11.0); Mono # (Auto) 0.9 th/mm3 (0.0-0.9); Mono % (Auto) 7.5 % (0.0-8.0); Neut # (Auto) 7.6 th/mm3 (1.8-7.7); Neut % (Auto) 65.8 % (16.0-70.0); Platelet Count 209 th/mm3 (150-450); Red Cell Distribution Width 15.2 % (11.6-17.2); White Blood Count 11.6 th/mm3 (4.0-11.0)
[2018-02-12 04:56] LABS: Anion Gap 6 meq/L (5-15); Blood Urea Nitrogen 7 mg/dL (7-18); Calcium 8.7 mg/dL (8.5-10.1); Carbon Dioxide 29.6 meq/L (21.0-32.0); Chloride 106 meq/L (98-107); Glomerular Filtration Rate Greater Than 89 mL/min (>89); Glucose,Random 81 mg/dL (74-106); Lipase 336 U/L (73-393); Magnesium 1.8 mg/dL (1.5-2.5); Phosphorus 3.5 mg/dL (2.5-4.9); Potassium 3.4 meq/L (3.5-5.1); Sodium 142 meq/L (136-145)
[2018-02-12] MEDS: Chlorhexidine Gluconate 2% 1 Pack (2 Cloths) TOPICAL SCH (05:04)
[2018-02-12] MEDS: Lisinopril 20 MG Tablet PO SCH (08:07)
[2018-02-12] MEDS: Senna/Docusate Sodium 8.6/50 MG Tablet PO SCH (08:09)
[2018-02-12] MEDS: amLODIPine 10 MG Tablet PO SCH (08:09)
[2018-02-12] MEDS: Spironolactone 25 MG Tablet PO SCH (08:09)
[2018-02-12] MEDS: Insulin NovoLOG Aspart Correctional Sugar Inj SQ SCH ×2 (08:13→11:36)
[2018-02-12 08:27] VITALS: TEMP 98
[2018-02-12] MEDS: Sod Chloride 0.9% Inj 1,000 ML IV.CONT SCH (12:37)
[2018-02-12 12:42] VITALS: O2SAT 97
[2018-02-12 16:47] VITALS: BP 122/72; PULSE 61; RESP 22
--- NOTE | 2018-02-12 17:41 | P.DS ---
<Lilia Sutton W - Last Filed: 02/14/18 15:28> Date of admission: 02/10/18 22:27 Primary care physician: Jordan Lehman DO Attending physician on discharge: Branden Roberts Anticipated date of discharge: 02/12/18 Brief History from admission: This is a 42-year-old AA female. Date of admission 02/11/2008. Past medical includes hypertension and pancreatitis. Patient has a history of a positive tox positive for THC. Patient presents to [facility] with history of nausea /vomiting since early this a.m. describes as sharp epigastric pain. Patient did have an elevated lipase, leukocytosis and elevated hemoglobin likely secondary to dehydration/acute phase reactant. Patient received 20 mg IV labetalol without results/control her hypertension was started on a nicardipine drip. Patient is a negative CT angiogram of the aorta to rule out dissection. Troponin was 0.02. Please note last month patient admitted echocardiogram revealed EF 6065%. Slight LVH. Had a negative Lexiscan. Also note, patient elevated total metanephrines of 1751 and normetanephrines at greater than 1500. Adrenal glands looked within normal limits on CT angiogram of the aorta. DS: Diagnosis - Discharge Diagnosis (1) Acute pancreatitis Status: Acute (2) Hypertensive emergency Status: Acute DS: Summary Hospital Course: Hypertensive emergency Patient had N/V at home was unable to take her home medication initially admitted to ICU and placed on a Cardene drip Continue amlodipine 10 mg daily, lisinopril 40 mg daily and Aldactone 25mg daily Weaned off Cardene drip. During last admission occurring revealed EF of 60-65%. Mild LVH. PA P [address] angiogram the aorta revealed no dissection Please note patient had elevated total metanephrines of 1751 and normetanephrine 1514 last admission Patient instructed to follow up with endocrinology Dr. Cunha in 1-2 weeks CXR: No acute disease Nausea/vomiting Acute pancreatitis Elevated lipase (02/11) 1107 Abdomen MRI 02/11/18 00:00 CONCLUSION: 1. There is some peripancreatic fluid and edema which tracks along the second and third portions of the duodenum. I believe findings are most characteristic of an acute pancreatitis. Could also consider duodenitis if pancreatic enzymes are not elevated. 2. Hepatic fatty infiltration. lipase decreased to 336 (02/12) patient now tolerating PO intake Prophylaxis -GI -femoral to pain -DVT -SCD - Time Spent with Patient Total time spent providing and/or coordinating discharge services: Greater than 30 minutes - Quality: VTE Deep Vein Thrombosis/Pulmonary Embolism Present on Admission: No Exam Vital signs: Vital Signs 02/11/18 18:00 02/11/18 19:00 02/11/18 19:01 Temperature Pulse Rate 61 72 72 Respiratory Rate 22 23 35 H Blood Pressure 137/87 178/94 H Pulse Oximetry 97 98 100 02/11/18 20:00 02/11/18 20:23 02/11/18 20:26 Temperature 98.2 F Pulse Rate 104 H 61 Respiratory Rate 55 H 26 H Blood Pressure 124/79 124/79 Pulse Oximetry 98 99 99 02/11/18 20:35 02/11/18 21:00 02/11/18 22:00 Temperature Pulse Rate 60 56 L Respiratory Rate 16 23 15 Blood Pressure 135/80 132/82 Pulse Oximetry 97 95 02/11/18 23:00 02/12/18 00:00 02/12/18 01:00 Temperature 98.4 F Pulse Rate 52 L 71 62 Respiratory Rate 18 20 26 H Blood Pressure 138/86 142/73 H 118/65 Pulse Oximetry 96 96 95 02/12/18 02:00 02/12/18 03:00 02/12/18 04:00 Temperature 98.5 F Pulse Rate 56 L 55 L 50 L Respiratory Rate 31 H 24 28 H Blood Pressure 110/74 118/82 125/85 Pulse Oximetry 96 97 100 02/12/18 04:01 02/12/18 05:00 02/12/18 06:00 Temperature Pulse Rate 64 56 L 50 L Respiratory Rate 38 H 34 H 17 Blood Pressure 125/85 132/96 H 123/80 Pulse Oximetry 100 97 02/12/18 07:00 02/12/18 08:00 02/12/18 08:01 Temperature 98 F Pulse Rate 69 56 L 56 L Respiratory Rate 30 H 40 H 34 H Blood Pressure 115/86 163/80 H 163/90 H Pulse Oximetry 02/12/18 09:00 02/12/18 09:07 02/12/18 10:00 Temperature Pulse Rate 74 53 L 59 L Respiratory Rate 34 H 20 41 H Blood Pressure 154/101 H 118/62 Pulse Oximetry 02/12/18 10:19 02/12/18 11:00 02/12/18 11:28 Temperature Pulse Rate 51 L 55 L Respiratory Rate 46 H 28 H 2 L Blood Pressure 128/75 116/68 Pulse Oximetry 02/12/18 12:00 02/12/18 13:00 02/12/18 14:00 Temperature Pulse Rate 49 L 64 54 L Respiratory Rate 29 H 24 28 H Blood Pressure 125/81 147/84 H 121/80 Pulse Oximetry 02/12/18 15:00 02/12/18 15:21 02/12/18 16:00 Temperature Pulse Rate 71 60 61 Respiratory Rate 58 H 36 H 22 Blood Pressure 144/78 H 122/72 Pulse Oximetry Intake & Output 02/11/18 02/12/18 02/12/18 18:59 06:59 18:59 Intake Total 2200 / 2200 1000 / 1000 1000 / 1000 Output Total 1325 / 1325 600 / 600 Balance 875 / 875 400 / 400 1000 / 1000 Weight 123.5 kg Intake: IV 1240 / 1240 1000 / 1000 1000 / 1000 NS Inj 1,000 ML @ 84 mls/hr IV. 1000 / 1000 1000 / 1000 1000 / 1000 CONT .[id number] [facility] Rx#:[id number] Cardene Inj 25 MG In NS Inj 240 240 / 240 ML @ 5 MG/HR 50 mls/hr IV.CONT TITRATE PRN Rx#:[id number] Oral 960 / 960 Output: Urine 1325 / 1325 600 / 600 Other: Date of Last Bowel Movement 02/10/18 02/10/18 02/10/18 Narrative: GENERAL: This is a well-nourished, well-developed patient, in no apparent distress. CARDIOVASCULAR: Regular rate and rhythm RESPIRATORY: Clear to auscultation. Breath sounds equal bilaterally. GASTROINTESTINAL: Abdomen soft, non-tender, nondistended. Normal active bowel sounds MUSCULOSKELETAL: Extremities without clubbing, cyanosis, or edema. NEURO: Alert & Oriented x4 to person, place, time, situation. Moves all ext x4 Results Procedures completed during hospitalization: none Labs on day of discharge: Labs from last 24 hours 02/12/18 02/12/18 02/12/18 11:35 08:13 04:10 WBC RBC Hgb Hct MCV MCH MCHC RDW Plt Count MPV Neut % (Auto) Lymph % (Auto) [place] % (Auto) Eos % (Auto) Baso % (Auto) Neut # (Auto) Lymph # (Auto) [place] # (Auto) Eos # (Auto) Baso # (Auto) WBC Differential Differential Comment Sodium 142 Potassium 3.4 L Chloride 106 Carbon Dioxide 29.6 Anion Gap 6 BUN 7 Creatinine 0.82 Estimated GFR Greater than 89 POC Glucose 92 89 Random Glucose 81 Hemoglobin A1c Calcium 8.7 Phosphorus 3.5 Magnesium 1.8 Lipase 336 02/12/18 02/11/18 02/11/18 04:01 20:25 18:30 WBC 11.6 H RBC 4.90 Hgb 14.1 Hct 42.6 MCV 86.9 MCH 28.8 MCHC 33.1 RDW 15.2 Plt Count 209 MPV 8.4 Neut % (Auto) 65.8 Lymph % (Auto) 25.9 [place] % (Auto) 7.5 Eos % (Auto) 0.6 Baso % (Auto) 0.2 Neut # (Auto) 7.6 Lymph # (Auto) 3.0 [place] # (Auto) 0.9 Eos # (Auto) 0.1 Baso # (Auto) 0.0 WBC Differential . Differential Comment Auto diff final Sodium Potassium 3.2 L Chloride Carbon Dioxide Anion Gap BUN Creatinine Estimated GFR POC Glucose 109 Random Glucose Hemoglobin A1c Calcium Phosphorus Magnesium Lipase 02/10/18 19:56 WBC RBC Hgb Hct MCV MCH MCHC RDW Plt Count MPV Neut % (Auto) Lymph % (Auto) [place] % (Auto) Eos % (Auto) Baso % (Auto) Neut # (Auto) Lymph # (Auto) [place] # (Auto) Eos # (Auto) Baso # (Auto) WBC Differential Differential Comment Sodium Potassium Chloride Carbon Dioxide Anion Gap BUN Creatinine Estimated GFR POC Glucose Random Glucose Hemoglobin A1c 5.4 Calcium Phosphorus Magnesium Lipase - Impressions ITS Impressions Chest X-Ray 02/10/18 19:31 CONCLUSION: No acute cardiopulmonary disease. Thoracic Aorta CT 02/10/18 19:33 CONCLUSION: 1. Aorta remains intact with no evidence of an aneurysm or dissection. Abdomen MRI 02/11/18 00:00 CONCLUSION: 1. There is some peripancreatic fluid and edema which tracks along the second and third portions of the duodenum. I believe findings are most characteristic of an acute pancreatitis. Could also consider duodenitis if pancreatic enzymes are not elevated. 2. Hepatic fatty infiltration. <Branden Roberts - Last Filed: 02/18/18 12:23> Date of admission: 02/10/18 22:27 Primary care physician: Jordan Lehman DO DS: Summary Hospital Course: Patient examined. Assessment and plan formulated with Lilia Sutton PA-C. I agree with the above. - Time Spent with Patient Total time spent providing and/or coordinating discharge services: Results - Impressions ITS Impressions Chest X-Ray 02/10/18 19:31 CONCLUSION: No acute cardiopulmonary disease. Thoracic Aorta CT 02/10/18 19:33 CONCLUSION: 1. Aorta remains intact with no evidence of an aneurysm or dissection. Abdomen MRI 02/11/18 00:00 CONCLUSION: 1. There is some peripancreatic fluid and edema which tracks along the second and third portions of the duodenum. I believe findings are most characteristic of an acute pancreatitis. Could also consider duodenitis if pancreatic enzymes are not elevated. 2. Hepatic fatty infiltration. Discharge Plan - Discharge Order Discharge Orders: Discharge Order (Routine); Ordered 02/12/18 Ordered By: Lilia Sutton - Discharge Details Anticipated Discharge Date: 02/12/18 - Physicians Team Primary Care Provider: Jordan Lehman Attending Provider: Branden Roberts Other Providers: Branden Roberts DO
== END 2018-02-12 19:10 | disposition home or self-care (01) ==
LOC: NEPC 16:39 → NEDA 22:27 → NEDH 02-11 02:27 → HIMC 02-11 03:45
PROVIDERS: ADMIT Hospitalist; ATTEND Hospitalist